=== PATIENT | female | born 1935 | race African-American/Black ===

== ENCOUNTER 2017-03-11 14:32 | Outpatient (CLI) | payer MEDICARE, OTHER | END 2017-03-11 14:33 | disposition home or self-care (01) | LOC: BICMAMMO 14:32 | PROVIDERS: ATTEND Internal Medicine Rheumatology | DX: Z13.820 Encounter for screening for osteoporosis (principal) | CPT/HCPCS: 77080 ==

== ENCOUNTER 2017-05-26 17:16 | Emergency (ER) | payer MEDICARE ==
[2017-05-26 17:54] LABS: #Basophils 0.1 thou/uL (0.0-0.2); #Eosinphils 0.3 thou/uL (0.0-0.7); #Lymphocytes 2.4 thou/uL (1.20-3.40); #Monocytes 0.8 thou/uL (0.11-0.59); #Neutrophils 3.8 thou/uL (1.40-6.50); %Basophils 0.7 % (0.0-1.0); %Eosinophils 4.2 % (0.0-10.0); %Lymphocytes 33.1 % (21.0-51.0); %Monocytes 10.9 % (0.0-10.0); %Neutrophils 51.2 % (42.0-75.0); Hemoglobin 10.1 g/dL (12.0-16.0); Mean Corpuscular HGB CONC 32.8 g/dL (32.0-36.0); Mean Corpuscular Hemoglobin 28.4 pg (27.0-31.0); Mean Corpuscular Volume 86.7 fl (81.0-99.0); Mean Platelet Volume 6.7 fL (7.4-10.4); Platelet Count 355 thou/uL (130-400); RBC Distribution Width 15.8 % (11.5-14.5); Red Blood Cell (RBC) Count 3.55 mill/uL (4.20-5.40); White Blood Cell (WBC) Count 7.3 thou/uL (4.8-10.8)
--- NOTE | 2017-05-26 18:16 | RAD ---
CHEST ONE VIEW: History: Weakness. Comparison: 08-06-16 FINDINGS: Similar appearance of the right basilar interstitial markings. No overt consolidation. No pneumothora x or effusion. Cardiac silhouette and mediastinal contours are similar. No acute osseous abnormality. IMPRESSION: Similar appearance of the increased interstitial markings in lung bases, likely fibrosis. POS: [facility]
[2017-05-26 18:20] LABS: ALT (SGPT) 14 U/L (8-55); AST (SGOT) 24 U/L (5-34); Albumin 3.3 g/dL (3.4-4.8); Alkaline Phosphatase 48 U/L (40-150); Anion Gap 15 mmol/L (10-20); BUN (Urea Nitrogen) 17 mg/dL (9.8-20.1); Bilirubin, Total 0.4 mg/dL (0.2-1.2); CK (CPK) 66 U/L (29-168); Calc. Creatinine Clearance 0 mL/min (70-130); Calcium 9.4 mg/dL (7.8-10.44); Carbon Dioxide 26 mmol/L (23-31); Chloride 93 mmol/L (98-107); Estimated GFR-MDRD 81; Globulin 4.5 g/dL (2.4-3.5); Glucose 95 mg/dL (83-110); Potassium 3.4 mmol/L (3.5-5.1); Protein, Total 7.8 g/dL (6.0-8.3); Sodium 131 mmol/L (136-145)
[2017-05-26 18:21] LABS: CKMB 1.1 ng/mL (0-6.6); Troponin I 0.014 ng/mL (< 0.028)
[2017-05-26] MEDS ORDERED: Ketorolac Tromethamine 30 MG/ML VIAL ONE (19:27)
[2017-05-26] MEDS ORDERED: Dexamethasone 4 mg/ml Vial ONE (19:27)
== END 2017-05-26 22:10 | disposition home or self-care (01) ==
LOC: ERS 17:16
DX: M19.90 Unspecified osteoarthritis, unspecified site (principal); I10 Essential (primary) hypertension; K21.9 Gastro-esophageal reflux disease without esophagitis; F32.9 Major depressive disorder, single episode, unspecified
CPT/HCPCS: 71045; 80053; 82553; 84484; 85025; 93005; 94760; 96361; 96374; 96375; J1100; J1885

== ENCOUNTER 2017-06-10 17:13 | Emergency (ER) | payer MEDICARE ==
[2017-06-10 18:09] LABS: #Eosinphils 0.3 thou/uL (0.0-0.7); #Lymphocytes 2.6 thou/uL (1.20-3.40); #Monocytes 0.7 thou/uL (0.11-0.59); #Neutrophils 4.1 thou/uL (1.40-6.50); %Basophils 0.4 % (0.0-1.0); %Eosinophils 4.1 % (0.0-10.0); %Lymphocytes 33.8 % (21.0-51.0); %Monocytes 8.9 % (0.0-10.0); %Neutrophils 52.9 % (42.0-75.0); Mean Corpuscular HGB CONC 32.1 g/dL (32.0-36.0); Mean Corpuscular Hemoglobin 27.5 pg (27.0-31.0); Mean Corpuscular Volume 85.6 fl (81.0-99.0); Mean Platelet Volume 6.6 fL (7.4-10.4); Platelet Count 402 thou/uL (130-400); RBC Distribution Width 15.3 % (11.5-14.5); Red Blood Cell (RBC) Count 3.62 mill/uL (4.20-5.40); White Blood Cell (WBC) Count 7.7 thou/uL (4.8-10.8)
[2017-06-10 18:12] LABS: INR-International Normal Ratio 1.1; Prothrombin Time 13.9 SEC (12.0-14.7)
[2017-06-10] MEDS ORDERED: Ondansetron HCl/PF 4 MG/2 ML Vial ONE (18:24)
[2017-06-10 18:29] LABS: ALT (SGPT) 9 U/L (8-55); AST (SGOT) 18 U/L (5-34); Albumin 3.5 g/dL (3.4-4.8); Alkaline Phosphatase 49 U/L (40-150); Anion Gap 14 mmol/L (10-20); BUN (Urea Nitrogen) 18 mg/dL (9.8-20.1); Bilirubin, Total 0.6 mg/dL (0.2-1.2); Calc. Creatinine Clearance 0 mL/min (70-130); Calcium 9.7 mg/dL (7.8-10.44); Carbon Dioxide 27 mmol/L (23-31); Chloride 92 mmol/L (98-107); Estimated GFR-MDRD 81; Glucose 96 mg/dL (83-110); Lipase 7 U/L (8-78); Magnesium 1.8 mg/dL (1.6-2.6); Potassium 3.5 mmol/L (3.5-5.1); Protein, Total 8.5 g/dL (6.0-8.3); Sodium 129 mmol/L (136-145)
[2017-06-10 18:34] LABS: CKMB 1.2 ng/mL (0-6.6); Troponin I Less than 0.010 ng/mL (< 0.028)
[2017-06-10] MEDS ORDERED: Acetaminophen 500 MG TAB ONE (18:56)
[2017-06-10 19:25] LABS: Bilirubin Negative (Negative); Blood, Urine Negative (Negative); Clarity CLEAR (Clear); Glucose, Urine (Dipstick) Negative (Negative); Leukocyte Moderate (Negative); Nitrite Negative (Negative); Protein, Urine (Dipstick) Negative (Neg-Trace); Specific Gravity, Urine 1.009 (1.002-1.036)
--- NOTE | 2017-06-10 19:26 | RAD ---
RADIOGRAPH CHEST 1 VIEW RADIOGRAPH ABDOMEN 2 VIEWS: Date: 06/10/17 Time: 6:06 p.m. HISTORY: 81-year-old female with nausea, productive cough, vomiting, generalized weakness. COMPARISON: 11/12/14 FINDINGS: There are fibrotic changes, consisting of honeycombing, at the basilar segments of the bilateral lowe r lobes, left greater than right. There is a small, flame shaped focal faint nodular density projecti ng over the left upper lobe. This was not present on a previous radiograph of 11/12/14. Cardiomediasti nal silhouette is normal. No pulmonary edema or pneumothorax. No pneumoperitoneum. Levoscoliosis with apex of curvature at thoracolumbar junction. Multilevel vacuum disc phenomenon, high grade disc spac e narrowing, and osteophytosis, of the lumbar spine. Nonobstructive bowel gas pattern. No evidence of pneumoperitoneum. IMPRESSION: 1. Left upper lobe pulmonary nodule. Recommend CT for further evaluation. 2. Pulmonary fibrosis at the bilateral lung bases: honeycombing. 3. No acute pulmonary findings. 4. No evidence of bowel obstruction. 5. High grade lumbar spondylosis and lumbar levoscoliosis. Code LN JN [] POS: [facility]
[2017-06-10 19:28] LABS: Bacteria/HPF None Seen HPF (None Seen); Hyaline Casts/LPF 0-3 HYALINE CAST LPF (0-3 Hyaline); Pathc Cast-AUWi Flag 0.13 (0-2.49); RBC/HPF 0-3 HPF (0-3); Squamous Epithelial 0-3 HPF (0-3)
--- NOTE | 2017-06-13 11:57 | EKG ---
Test Reason : NAUSEA VOMITING Blood Pressure : / mmHG Vent. Rate : 075 BPM Atrial Rate : 075 BPM P-R Int : 154 ms QRS Dur : 080 ms QT Int : 412 ms P-R-T Axes : 040 031 038 degrees QTc Int : 460 ms Normal sinus rhythm Possible Left atrial enlargement ST abnormality, possible digitalis effect Abnormal ECG Confirmed by MATA Corbett, TAMIKA ([id number]), scientific publications editor VIKRAM DOUGLAS ([id number]) on 06/13/2017 11:56:15 AM Referred By: MATA Confirmed By:TAMIKA AUGUST M.D.
== END 2017-06-10 20:13 | disposition home or self-care (01) ==
LOC: ERS 17:13
DX: E87.1 Hypo-osmolality and hyponatremia (principal); N39.0 Urinary tract infection, site not specified; I10 Essential (primary) hypertension; M06.9 Rheumatoid arthritis, unspecified; F32.9 Major depressive disorder, single episode, unspecified; K21.9 Gastro-esophageal reflux disease without esophagitis
CPT/HCPCS: 74022; 80053; 81003; 81015; 82553; 83605; 83690; 83735; 84484; 85025; 85610; 87804; 93005; 96361; 96374; J2405

== ENCOUNTER 2017-09-11 03:52 | Inpatient (IN) | payer MEDICARE ==
[2017-09-11] MEDS ORDERED: Ondansetron ODT 4 MG TAB ONE (04:20)
[2017-09-11 04:31] LABS: #Basophils 0.1 thou/uL (0.0-0.2); #Eosinphils 0.1 thou/uL (0.0-0.7); #Lymphocytes 3.5 thou/uL (1.20-3.40); #Monocytes 0.5 thou/uL (0.11-0.59); %Basophils 0.8 % (0.0-1.0); %Eosinophils 1.1 % (0.0-10.0); %Monocytes 5.3 % (0.0-10.0); %Neutrophils 58.8 % (42.0-75.0); Mean Corpuscular HGB CONC 32.8 g/dL (32.0-36.0); Mean Corpuscular Volume 79.3 fL (78.0-98.0); Mean Platelet Volume 6.1 fL (7.4-10.4); Platelet Count 567 thou/uL (130-400); RBC Distribution Width 16.2 % (11.5-14.5); Red Blood Cell (RBC) Count 3.46 mill/uL (4.20-5.40); White Blood Cell (WBC) Count 10.2 thou/uL (4.8-10.8)
[2017-09-11 04:52] LABS: ALT (SGPT) Less than 7 U/L (8-55); AST (SGOT) 17 U/L (5-34); Albumin 3.1 g/dL (3.4-4.8); Alkaline Phosphatase 49 U/L (40-150); Anion Gap 14 mmol/L (10-20); BUN (Urea Nitrogen) 11 mg/dL (9.8-20.1); Bilirubin, Total 0.4 mg/dL (0.2-1.2); CK (CPK) 20 U/L (29-168); Calc. Creatinine Clearance 0 mL/min (70-130); Calcium 9.4 mg/dL (7.8-10.44); Carbon Dioxide 27 mmol/L (23-31); Chloride 90 mmol/L (98-107); Estimated GFR-MDRD Greater than 90; Globulin 5.6 g/dL (2.4-3.5); Glucose 115 mg/dL (83-110); Lipase 6 U/L (8-78); Potassium 3.1 mmol/L (3.5-5.1); Protein, Total 8.7 g/dL (6.0-8.3); Sodium 128 mmol/L (136-145)
[2017-09-11 04:56] LABS: CKMB 0.6 ng/mL (0-6.6); Troponin I Less than 0.010 ng/mL (< 0.028)
[2017-09-11 05:02] LABS: Bilirubin Negative (Negative); Blood, Urine Moderate (Negative); Clarity CLEAR (Clear); Glucose, Urine (Dipstick) Negative (Negative); Leukocyte Trace (Negative); Nitrite Negative (Negative); Protein, Urine (Dipstick) Negative (Neg-Trace); Specific Gravity, Urine 1.008 (1.002-1.036); Urobilinogen 0.2 mg/dL (0.2-1.0)
[2017-09-11 05:05] LABS: Bacteria/HPF 1+ HPF (None Seen); Pathc Cast-AUWi Flag 1.01 (0-2.49); Squamous Epithelial 0-3 HPF (0-3); WBC/HPF 0-3 HPF (0-3)
[2017-09-11 05:25] LABS: Hyaline Casts/LPF 0-3 HYALINE CAST LPF (0-3 Hyaline)
[2017-09-11] MEDS ORDERED: metroNIDAZOLE 500 MG/100 ML BAG ONE (06:17)
[2017-09-11] MEDS ORDERED: Promethazine HCl 25 MG/ML VIAL ONE (06:43)
[2017-09-11] MEDS ORDERED: Potassium Chloride 20 MEQ TAB PO SCH (08:00)
[2017-09-11] MEDS ORDERED: Sodium Chloride 0.9% 1,000 ML IV SCH (08:00)
[2017-09-11] MEDS ORDERED: Ondansetron ODT 4 MG TAB PO PRN ×2 (08:02→11:05)
[2017-09-11] MEDS ORDERED: Ondansetron HCl/PF 4 MG/2 ML Vial IVP PRN ×2 (08:02→11:05)
--- NOTE | 2017-09-11 09:07 | CT ---
FINAL REPORT CT ABDOMEN AND PELVIS WITH IV CONTRAST: DATE: 08/22/17. TIME: Performed on an emergency basis at 0502 hours. HISTORY: Abdominal pain. Nausea and vomiting. COMPARISON: 04/04/14. FINDINGS: Findings agree with the preliminary report by Dr. Villalta from [facility]. Bibasilar lung pare nchymal scarring and fibrotic changes are again demonstrated. Circumferential wall thickening is sub tle and could be related to long-segment colitis. Cause is not evident. POS: [facility]
[2017-09-11] MEDS ORDERED: ISOVUE-370 76%-LOCM 1 ML ONE (10:59)
[2017-09-11] MEDS ORDERED: hydrALAZINE 20 MG/ML VIAL SLOW IVP PRN (11:05)
[2017-09-11] MEDS ORDERED: Famotidine/PF 20 mg/2ml Vial SLOW IVP SCH ×2 (11:05→11:15)
[2017-09-11] MEDS ORDERED: cloNIDine 0.1 MG TAB PO PRN (11:05)
[2017-09-11] MEDS ORDERED: Morphine 4 MG/ML Carpuject SLOW IVP PRN (11:08)
[2017-09-11] MEDS ORDERED: Non-Formulary Item 1 EACH (Cyclobenzaprine Hcl [Cyclobenzaprine Hcl] 5 MG) PO PRN (11:11)
[2017-09-11] MEDS: Sodium Chloride 0.9% 1,000 ML IV SCH ×3 (11:36→20:47)
[2017-09-11] MEDS: Famotidine/PF 20 mg/2ml Vial SLOW IVP SCH (12:03)
--- NOTE | 2017-09-11 12:05 | HP ---
DATE OF ADMISSION: 09/11/2017 PRIMARY CARE PHYSICIAN: Dr. Jude Rincon. CHIEF COMPLAINT: Abdominal pain, nausea, and vomiting. HISTORY OF PRESENT ILLNESS: This is an 82-year-old -Gabonese female who complains of increasi ng abdominal pain, nausea, and vomiting which began in the last 24 hours. The patient had multiple e pisodes of emesis which began approximately 2100 on 09/10/2017. The patient does report a history of constipation and recently placed on iron supplements approximately 2 months prior to this evaluation . The patient denies any travel history. Family members with similar symptoms, recent trauma, injur y or documented fever. The patient does admit to body aches, joint pains and back pain. The patient denied any blood in her emesis or blood in the stool. The patient denies any recent change to her c hronic medication regimen other than the iron therapy. The family reports patient has had overall de creased appetite over the last several weeks; however, the patient reports her last regular meal inta ke was within the last 24 hours. The patient denies any dysuria, flank pain, shortness of breath or cough. The patient denies any recent exposure to antibiotic therapy. The patient admits to ban ding back pain as well as degenerative changes. In the emergency room, the patient underwent general evaluation including CT of the abdomen and pelvis. Findings included circumferential bowel wall thi ckening in the colon concerning for acute colitis. The patient received multiple medications in the emergency room including Flagyl and Levaquin. The patient also received antiemetics with Zofran and Phenergan as well as intravenous normal saline. The patient continues to complain of abdominal disco mfort and persistent nausea. PAST MEDICAL HISTORY: 1. Rheumatoid arthritis. 2. Hypertension. 3. Gastroesophageal reflux disease. 4. History of remote bowel obstruction, status post bowel resection. 5. Chronic normocytic anemia with iron supplementation. PAST SURGICAL HISTORY: 1. Status post bowel resection. 2. Status post lumbar laminectomy with facetectomy and foraminotomies in 2016. 3. Status post bilateral total knee arthroplasty. 4. Status post bilateral cataract removal. CURRENT MEDICATIONS: List will need to be confirmed with family members. 1. Lexapro 20 mg one tab p.o. at bedtime. 2. Carvedilol 6.25 mg p.o. b.i.d. 3. Breo Ellipta 1 inhalation b.i.d. 4. Nifedipine 30 mg p.o. daily. 5. Aspirin 81 mg 1 tab p.o. daily. 6. Folic acid 1000 mcg p.o. daily. 7. Hydrochlorothiazide 25 mg p.o. daily. 8. Alprazolam 0.25 mg p.o. p.r.n. 9. Iron 325 mg p.o. daily. ALLERGIES: PENICILLIN, TALWIN, and PENTAZOCINE. FAMILY HISTORY: Positive for lung cancer. SOCIAL HISTORY: , accompanied by multiple family members in the hospital. Resides in [place], [place]. Retired. No current alcohol, tobacco or illicit drug use. REVIEW OF SYSTEMS: The following complete review of systems was negative, unless otherwise mentioned in the HPI or below: Constitutional: Weight loss or gain, ability to conduct usual activities. Skin: Rash, itching. Eyes: Double vision, pain. ENT/Mouth: Nose bleeding, neck stiffness, pain, tenderness. Cardiovascular: Palpitations, dyspnea on exertion, orthopnea. Respiratory: Shortness of breath, wheezing, cough, hemoptysis, fever or night sweats. Gastrointestinal: Poor appetite, abdominal pain, heartburn, nausea, vomiting, constipation, or diarr hea. Genitourinary: Urgency, frequency, dysuria, nocturia. Musculoskeletal: Pain, swelling. Neurologic/Psychiatric: Anxiety, depression. Allergy/Immunologic: Skin rash, bleeding tendency. Otherwise negative except as stated per HPI. PHYSICAL EXAMINATION: VITAL SIGNS: On admission, blood pressure 141/80, pulse 96, respiratory rate 22, temperature 98.3 de grees Fahrenheit, O2 saturation 95% on room air. GENERAL APPEARANCE: This is an 82-year-old -Gabonese female, alert and oriented x3 in mild to moderate distress. HEENT: Pupils are equal, round, and reactive to light and accommodation. Extraocular muscles are in tact. No scleral icterus, no conjunctival injection. Nares patent. OP is clear. Oral mucosa dry a ppearing. NECK: Supple, no cervical adenopathy, no thyromegaly, no carotid bruits, no JVD appreciated. Cervic al spine with full active and passive range of motion. No meningeal signs appreciated. CHEST: Lungs are clear to auscultation bilaterally. CARDIOVASCULAR: S1 and S2 without noted murmur, rub or gallop. ABDOMEN: Rounded with tenderness to palpation diffusely. No rebound or guarding noted. Bowel sound s are positive in all 4 quadrants. No CVA tenderness appreciated. EXTREMITIES: Warm and dry with fair turgor. No clubbing, cyanosis or asymmetric edema appreciated. Pulses palpable distally at the dorsalis pedis, posterior tibial, and popliteal arteries bilaterally . Capillary refill less than 2 seconds. NEUROLOGIC: Cranial nerves II-XII are grossly intact. No focal or lateralizing signs appreciated. PERTINENT LABORATORY DATA AND X-RAY FINDINGS: Sodium 128, potassium 3.1, chloride 90, CO2 of 27, BUN 11, creatinine 0.66, glucose 115, calcium 9.4, AST 17, ALT less than 7, alkaline phosphatase 49, tot al CK of 20, BNP 78, albumin 3.1, lipase 6. CBC showed a white blood cell count of 10.2, hemoglobin 9, hematocrit 27, platelet count 567 with 59% neutrophils. Urinalysis positive for trace leukocyte e sterase and moderate blood with urine microscopy showing 11-20 rbc's per high powered field. Stool H emoccult negative x1 on 09/11/2017. CT of the abdomen and pelvis dated 09/11/2017 showed bibasilar l amaris parenchymal scarring and fibrotic changes. Circumferential wall thickening suggestive of colitis . EKG dated 09/11/2017 by my interpretation shows sinus mechanism with heart rates in the 80s. Atte nuated R waves in the precordial leads. Normal axis. No acute ST-T wave changes appreciated. ASSESSMENT AND PLAN: 1. Acute colitis/gastroenteritis. The patient will be admitted to the medical floor. We will brain nue ciprofloxacin 400 mg IV q.12 hours with additional Flagyl 500 mg IV q.8 hours. Continue intraven ous normal saline at 125 mL per hour. Check stool studies to rule out Campylobacter and Clostridium difficile. No current evidence to suggest acute gastrointestinal bleed. Consider GI consultation if patient does not clinically improve in the next 24 hours. 2. Nausea and vomiting. We will continue intravenous fluids as outlined in #1. Phenergan 25 mg IV q.6 hours p.r.n., Zofran 8 mg IV q.6 hours p.r.n. Clear liquids as tolerated. 3. Hyponatremia. Appears chronic when comparing previous sodium values dating back to 2016. We joseph l continue intravenous normal saline and repeat sodium level in the a.m. 4. Hypokalemia. Continue potassium supplementation and repeat potassium level in the a.m. 5. Chronic normocytic anemia. We will continue to monitor serial hemoglobin trend. No current evid ence to suggest acute blood loss. Repeat CBC in the a.m. 6. Hypertension. We will confirm home antihypertensive regimen. Clonidine and hydralazine p.r.n. 7. Prophylaxis. Sequential compression devices while in bed. Pepcid 20 mg IV q.12 hours. 8. Code status is FULL. Surrogate medical decision maker is patient's spouse.
[2017-09-11] MEDS ORDERED: metroNIDAZOLE 500 MG in Premix Bag 1 BAG IVPB SCH (14:00)
[2017-09-11] MEDS: Dicyclomine 10 MG/5 ML UDCUP PO SCH ×3 (14:13→20:45)
[2017-09-11] MEDS: metroNIDAZOLE 500 MG in Premix Bag 1 BAG IVPB SCH ×2 (14:39→20:45)
[2017-09-11] MEDS: Promethazine HCl 25 MG in Sodium Chloride 0.9% 50 ML IVPB PRN (21:28)
[2017-09-12] MEDS: Promethazine HCl 25 MG in Sodium Chloride 0.9% 50 ML IVPB PRN (03:13)
[2017-09-12 05:07] LABS: ALT (SGPT) Less than 7 U/L (8-55); AST (SGOT) 13 U/L (5-34); Albumin 2.9 g/dL (3.4-4.8); Alkaline Phosphatase 40 U/L (40-150); Anion Gap 12 mmol/L (10-20); BUN (Urea Nitrogen) 5 mg/dL (9.8-20.1); Bilirubin, Total 0.3 mg/dL (0.2-1.2); Calc. Creatinine Clearance 66 mL/min (70-130); Calcium 8.6 mg/dL (7.8-10.44); Carbon Dioxide 25 mmol/L (23-31); Chloride 97 mmol/L (98-107); Estimated GFR-MDRD Greater than 90; Globulin 5.1 g/dL (2.4-3.5); Glucose 92 mg/dL (83-110); Potassium 3.1 mmol/L (3.5-5.1); Sodium 131 mmol/L (136-145)
[2017-09-12] MEDS: Sodium Chloride 0.9% 1,000 ML IV SCH ×2 (06:16→18:13)
[2017-09-12] MEDS: metroNIDAZOLE 500 MG in Premix Bag 1 BAG IVPB SCH ×3 (06:16→22:05)
[2017-09-12 06:29] LABS: Band 1 % (5-11); Hemoglobin 8.7 g/dL (12.0-16.0); Lymphocytes 20 % (21-51); MDiff Complete? YES; Mean Corpuscular HGB CONC 32.3 g/dL (32.0-36.0); Mean Corpuscular Hemoglobin 26.2 pg (27.0-31.0); Mean Corpuscular Volume 81.1 fL (78.0-98.0); Mean Platelet Volume 6.2 fL (7.4-10.4); Monocytes 6 % (0-10); Neutrophil 72 % (42-75); Platelet Count 534 thou/uL (130-400); RBC Distribution Width 16.3 % (11.5-14.5); Red Blood Cell (RBC) Count 3.32 mill/uL (4.20-5.40); White Blood Cell (WBC) Count 9.7 thou/uL (4.8-10.8)
[2017-09-12] MEDS: Dicyclomine 10 MG/5 ML UDCUP PO SCH ×4 (08:12→22:06)
[2017-09-12] MEDS: Famotidine/PF 20 mg/2ml Vial SLOW IVP SCH ×2 (09:40→22:06)
[2017-09-12] MEDS: Promethazine HCl 25 MG/ML VIAL IM/IV PRN (09:40)
[2017-09-12 12:25] VITALS: BMI 22.1
--- NOTE | 2017-09-12 17:42 | PDOC.PN ---
- Subjective Encounter Start Date: 09/12/17 Encounter Start Time: 11:00 Subjective: f/u for acute colitis on current Cipro/Flagyl. N/V resolving and less -: abd pain today. - Objective Resuscitation Status: Resuscitation Status FULL:Full Resuscitation MAR Reviewed: Yes Vital Signs & Weight: Vital Signs (12 hours) Temp Pulse Resp BP Pulse Ox 09/12/17 14:13 98.1 F 93 16 153/75 H 96 09/12/17 11:00 98.8 F 98 22 H 160/79 H 98 09/12/17 08:00 98.3 F 90 20 98 09/12/17 07:52 98.3 F 90 20 163/80 H Weight Admit Weight 130 lb 1.164 oz Weight 133 lb I&O: 09/11/17 09/12/17 09/13/17 06:59 06:59 06:59 Intake Total 2635 1583 Output Total 200 Balance 2435 1583 Result Diagrams: 09/12/17 04:15 09/12/17 04:15 Additional Labs: Microbiology 09/11/17 04:30 Stool - Pending Stool Occult Blood (SUBHASH) - Final 09/11/17 04:40 Urine clean catch Urine Culture - Preliminary Laboratory Tests 09/11/17 09/11/17 04:20 04:20 Hgb 9.0 L Plt Count 567 H Sodium 128 L Potassium 3.1 L Phys Exam - Physical Examination Constitutional: NAD HEENT: PERRLA, sclera anicteric, oral pharynx no lesions Neck: no nodes, no JVD, supple, full ROM Respiratory: no wheezing, no rales, no rhonchi, clear to auscultation bilateral S1, S2 Cardiovascular: RRR, no significant murmur, no rub, gallop mild TTP in LLQ Gastrointestinal: soft, no distention, positive bowel sounds Musculoskeletal: no edema, pulses present Neurological: non-focal, normal sensation, moves all 4 limbs Psychiatric: normal affect, A&O x 3 Skin: no rash, normal turgor, cap refill <2 seconds Dx/Plan (1) Acute colitis Code(s): K52.9 - NONINFECTIVE GASTROENTERITIS AND COLITIS, UNSPECIFIED Status : Acute Comment: Continue Cipro/Flagyl IV, supportive mgmt, IVF, Pain control Morphine Sulfate 4mg IV q4h prn (2) Gastroenteritis Code(s): K52.9 - NONINFECTIVE GASTROENTERITIS AND COLITIS, UNSPECIFIED Status : Acute Comment: Suspected given #1, see above (3) Nausea and vomiting Code(s): R11.2 - NAUSEA WITH VOMITING, UNSPECIFIED Status: Acute Comment: Continue Phenergan and Zofran, IVF's, clear liquids, resolving (4) Hyponatremia Code(s): E87.1 - HYPO-OSMOLALITY AND HYPONATREMIA Status: Acute Comment: Improved, likely multifactorial including poor po intake, continue IVF NS (5) Hypokalemia Code(s): E87.6 - HYPOKALEMIA Status: Acute Comment: KCL supplementation, serial K+ (6) Normocytic anemia Code(s): D64.9 - ANEMIA, UNSPECIFIED Status: Chronic Comment: Chronic, no active blood loss noted, serial CBC - Plan plan discussed w/ family, continue antibiotics, PT/OT, social insurance specialist, out of bed/ambulate, DVT proph w/SCDs Stable overall -: Continue IVF NS 100ml/h -: KCL supplementation and monitor serially -: Continue Phenergan and Zofran IV -: Continue Cipro and Flagyl * AM lab: BMP, CBC
[2017-09-13] MEDS: Promethazine HCl 25 MG in Sodium Chloride 0.9% 100 ML IVPB PRN ×2 (04:15→20:59)
[2017-09-13] MEDS: Acetaminophen 500 MG TAB PO PRN ×2 (04:40→21:04)
[2017-09-13 05:05] LABS: Anion Gap 12 mmol/L (10-20); BUN (Urea Nitrogen) 5 mg/dL (9.8-20.1); Calc. Creatinine Clearance 70 mL/min (70-130); Calcium 8.3 mg/dL (7.8-10.44); Carbon Dioxide 24 mmol/L (23-31); Chloride 97 mmol/L (98-107); Estimated GFR-MDRD Greater than 90; Glucose 98 mg/dL (83-110); Sodium 130 mmol/L (136-145)
[2017-09-13 05:09] LABS: Potassium 2.9 mmol/L (3.5-5.1)
[2017-09-13] MEDS: metroNIDAZOLE 500 MG in Premix Bag 1 BAG IVPB SCH ×3 (05:53→21:09)
[2017-09-13] MEDS: Sodium Chloride 0.9% 1,000 ML IV SCH ×4 (05:54→21:02)
[2017-09-13 06:20] LABS: Band 2 % (5-11); Eosinophils 1 % (0-10); Hemoglobin 8.8 g/dL (12.0-16.0); Lymphocytes 21 % (21-51); MDiff Complete? YES; Mean Corpuscular Hemoglobin 25.5 pg (27.0-31.0); Mean Corpuscular Volume 79.8 fL (78.0-98.0); Monocytes 7 % (0-10); Neutrophil 69 % (42-75); PLT Morphology Comment Appears Increased; Platelet Count 563 thou/uL (130-400); RBC Distribution Width 16.3 % (11.5-14.5); Red Blood Cell (RBC) Count 3.46 mill/uL (4.20-5.40); White Blood Cell (WBC) Count 10.6 thou/uL (4.8-10.8)
[2017-09-13] MEDS ORDERED: Potassium Chloride 20 MEQ TAB PO SCH (06:30)
[2017-09-13] MEDS: Dicyclomine 10 MG/5 ML UDCUP PO SCH ×4 (09:45→21:02)
[2017-09-13] MEDS: Famotidine/PF 20 mg/2ml Vial SLOW IVP SCH ×2 (09:45→21:03)
--- NOTE | 2017-09-13 14:56 | PDOC.PN ---
- Subjective Encounter Start Date: 09/13/17 Encounter Start Time: 14:40 Subjective: f/u for acute colitis tx with Cipro/Flagyl and feeling better. Tolerating -: liquids but coffee upset stomach. No N/V. No diarrhea. - Objective Resuscitation Status: Resuscitation Status FULL:Full Resuscitation MAR Reviewed: Yes Vital Signs & Weight: Vital Signs (12 hours) Temp Pulse Resp BP Pulse Ox 09/13/17 07:46 98.1 F 94 14 160/73 H 100 09/13/17 04:22 97.9 F 97 18 165/79 H 99 Weight Admit Weight 130 lb 1.164 oz Weight 133 lb I&O: 09/12/17 09/13/17 09/14/17 06:59 06:59 06:59 Intake Total 2635 1583 120 Output Total 200 Balance 2435 1583 120 Result Diagrams: 09/13/17 04:25 09/13/17 04:25 Additional Labs: Microbiology 09/11/17 04:40 Urine clean catch Urine Culture - Final 09/11/17 04:30 Stool - Pending Stool Occult Blood (SUBHASH) - Final 09/11/17 04:40 Urine clean catch Urine Culture - Preliminary Laboratory Tests 09/11/17 09/11/17 09/12/17 04:20 04:20 04:15 Hgb 9.0 L Plt Count 567 H Sodium 128 L 131 L Potassium 3.1 L 3.1 L Phys Exam - Physical Examination Constitutional: NAD HEENT: PERRLA, sclera anicteric, oral pharynx no lesions Neck: no nodes, no JVD, supple, full ROM Respiratory: no wheezing, no rales, no rhonchi, clear to auscultation bilateral S1, S2 Cardiovascular: RRR, no significant murmur, no rub, gallop Gastrointestinal: soft, non-tender, no distention, positive bowel sounds Musculoskeletal: no edema, pulses present Neurological: non-focal, normal sensation, moves all 4 limbs Psychiatric: normal affect, A&O x 3 Skin: no rash, normal turgor, cap refill <2 seconds Dx/Plan (1) Acute colitis Code(s): K52.9 - NONINFECTIVE GASTROENTERITIS AND COLITIS, UNSPECIFIED Status : Acute Comment: Continue Cipro/Flagyl IV, supportive mgmt, IVF, Pain control Morphine Sulfate 4mg IV q4h prn, continue IV abx another 24h then convert to po (2) Gastroenteritis Code(s): K52.9 - NONINFECTIVE GASTROENTERITIS AND COLITIS, UNSPECIFIED Status : Acute Comment: Suspected given #1, see above (3) Nausea and vomiting Code(s): R11.2 - NAUSEA WITH VOMITING, UNSPECIFIED Status: Acute Comment: Resolving, advance to [facility] soft diet (4) Hyponatremia Code(s): E87.1 - HYPO-OSMOLALITY AND HYPONATREMIA Status: Acute Comment: Improved, likely multifactorial including poor po intake, continue IVF NS decrease 75ml/h (5) Hypokalemia Code(s): E87.6 - HYPOKALEMIA Status: Acute Comment: KCL supplementation, serial K+ (6) Normocytic anemia Code(s): D64.9 - ANEMIA, UNSPECIFIED Status: Chronic Comment: Chronic, no active blood loss noted, serial CBC - Plan plan discussed w/ family, continue antibiotics, PT/OT, social service technician, out of bed/ambulate, DVT proph w/SCDs Stable overall -: Continue Cipro/Flagyl IV another 24h -: Advance to [facility] soft diet -: OOB/ambulate -: Decrease IVF 75ml/h * AM lab: BMP * Likely home in 24-48h
[2017-09-13] MEDS: Potassium Chloride 20 MEQ TAB PO SCH ×2 (16:38→21:03)
[2017-09-14] MEDS: metroNIDAZOLE 500 MG in Premix Bag 1 BAG IVPB SCH ×2 (05:21→13:05)
[2017-09-14 05:47] LABS: Anion Gap 10 mmol/L (10-20); BUN (Urea Nitrogen) 4 mg/dL (9.8-20.1); Calc. Creatinine Clearance 68 mL/min (70-130); Calcium 8.1 mg/dL (7.8-10.44); Carbon Dioxide 22 mmol/L (23-31); Chloride 103 mmol/L (98-107); Estimated GFR-MDRD Greater than 90; Glucose 80 mg/dL (83-110); Potassium 4.1 mmol/L (3.5-5.1); Sodium 131 mmol/L (136-145)
[2017-09-14] MEDS: Potassium Chloride 20 MEQ TAB PO SCH ×2 (09:32→14:16)
[2017-09-14] MEDS: Dicyclomine 10 MG/5 ML UDCUP PO SCH ×4 (09:33→20:09)
[2017-09-14] MEDS: Famotidine/PF 20 mg/2ml Vial SLOW IVP SCH ×2 (10:11→20:09)
[2017-09-14] MEDS: Promethazine HCl 25 MG/ML VIAL IM/IV PRN (10:56)
[2017-09-14] MEDS: Sodium Chloride 0.9% 1,000 ML IV SCH (16:37)
[2017-09-14] MEDS: Acetaminophen 500 MG TAB PO PRN (16:38)
--- NOTE | 2017-09-14 17:22 | PDOC.PN ---
- Subjective Encounter Start Date: 09/14/17 Encounter Start Time: 17:00 Subjective: f/u for acute colitis improved with supportive care. No diarrhea. -: Tolerating soft diet. - Objective Resuscitation Status: Resuscitation Status FULL:Full Resuscitation MAR Reviewed: Yes Vital Signs & Weight: Vital Signs (12 hours) Temp Pulse Resp BP Pulse Ox 09/14/17 10:16 165/75 H 09/14/17 08:00 98.4 F 101 H 18 98 09/14/17 07:52 98.4 F 101 H 18 181/69 H 98 Weight Admit Weight 130 lb 1.164 oz Weight 133 lb I&O: 09/13/17 09/14/17 09/15/17 06:59 06:59 06:59 Intake Total 1583 1060 Output Total 790 Balance 1583 270 Result Diagrams: 09/13/17 04:25 09/14/17 04:43 Phys Exam - Physical Examination Constitutional: NAD HEENT: PERRLA, sclera anicteric, oral pharynx no lesions Neck: no nodes, no JVD, supple, full ROM Respiratory: no wheezing, no rales, no rhonchi, clear to auscultation bilateral S1, S2 Cardiovascular: RRR, no significant murmur, no rub, gallop Gastrointestinal: soft, non-tender, no distention, positive bowel sounds Musculoskeletal: no edema, pulses present Neurological: non-focal, normal sensation, moves all 4 limbs Psychiatric: normal affect, A&O x 3 Skin: no rash, normal turgor, cap refill <2 seconds Dx/Plan (1) Acute colitis Code(s): K52.9 - NONINFECTIVE GASTROENTERITIS AND COLITIS, UNSPECIFIED Status : Acute Comment: Continue Cipro/Flagyl po, supportive mgmt (2) Gastroenteritis Code(s): K52.9 - NONINFECTIVE GASTROENTERITIS AND COLITIS, UNSPECIFIED Status : Acute Comment: Suspected given #1, see above (3) Nausea and vomiting Code(s): R11.2 - NAUSEA WITH VOMITING, UNSPECIFIED Status: Acute Comment: Resolving, advance to [facility] soft diet (4) Hyponatremia Code(s): E87.1 - HYPO-OSMOLALITY AND HYPONATREMIA Status: Acute Comment: Saline lock IVF (5) Hypokalemia Code(s): E87.6 - HYPOKALEMIA Status: Acute Comment: KCL supplementation, serial K+, resolving (6) Normocytic anemia Code(s): D64.9 - ANEMIA, UNSPECIFIED Status: Chronic Comment: Chronic, no active blood loss noted, serial CBC - Plan plan discussed w/ family, continue antibiotics, PT/OT, social economist, out of bed/ambulate, DVT proph w/SCDs Stable overall -: Convert Cipro and Flagyl to po -: Saline Lock IVF -: Miralax 17gm po daily -: Change KCL 40meq BID * Likely home in am
[2017-09-14] MEDS: metroNIDAZOLE 500 MG TAB PO SCH (20:08)
[2017-09-14] MEDS: Ciprofloxacin 500 MG TAB PO SCH (20:08)
[2017-09-14] MEDS ORDERED: Potassium Chloride 20 MEQ TAB PO SCH (21:00)
[2017-09-15] MEDS: Acetaminophen 500 MG TAB PO PRN ×2 (03:14→17:11)
[2017-09-15] MEDS: Cyclobenzaprine 10 MG TAB PO PRN ×2 (03:15→19:08)
[2017-09-15] MEDS: Ciprofloxacin 500 MG TAB PO SCH ×2 (05:49→20:37)
[2017-09-15] MEDS ORDERED: Potassium Chloride 20 MEQ TAB PO SCH (08:00)
[2017-09-15] MEDS ORDERED: ALPRAZolam 0.5 MG TAB PO PRN (09:47)
[2017-09-15] MEDS: metroNIDAZOLE 500 MG TAB PO SCH (09:48)
[2017-09-15] MEDS: Promethazine HCl 25 MG/ML VIAL IM/IV PRN (09:51)
[2017-09-15] MEDS: Famotidine/PF 20 mg/2ml Vial SLOW IVP SCH ×2 (09:52→20:43)
--- NOTE | 2017-09-15 09:52 | PDOC.PN ---
- Subjective Encounter Start Date: 09/15/17 Encounter Start Time: 09:30 Subjective: f/u for colitis of unclear etiology. States emesis this am after eating -: breakfast. Denied being nauseated prior. No abd pain or fever. - Objective Resuscitation Status: Resuscitation Status FULL:Full Resuscitation MAR Reviewed: Yes Vital Signs & Weight: Vital Signs (12 hours) Temp Pulse Resp BP Pulse Ox 09/15/17 07:25 98.2 F 89 18 174/81 H 99 Weight Admit Weight 130 lb 1.164 oz Weight 133 lb I&O: 09/14/17 09/15/17 09/16/17 06:59 06:59 06:59 Intake Total 1060 2637 Output Total 790 Balance 270 2637 Result Diagrams: 09/13/17 04:25 09/14/17 04:43 Phys Exam - Physical Examination Constitutional: NAD alert, responsive HEENT: PERRLA, sclera anicteric, oral pharynx no lesions Neck: no nodes, no JVD, supple, full ROM Respiratory: no wheezing, no rales, no rhonchi, clear to auscultation bilateral S1, S2 Cardiovascular: RRR, no significant murmur, no rub, gallop Gastrointestinal: soft, non-tender, no distention, positive bowel sounds Musculoskeletal: no edema, pulses present Neurological: non-focal, normal sensation, moves all 4 limbs Psychiatric: normal affect, A&O x 3 Skin: no rash, normal turgor, cap refill <2 seconds Dx/Plan (1) Acute colitis Code(s): K52.9 - NONINFECTIVE GASTROENTERITIS AND COLITIS, UNSPECIFIED Status : Acute Comment: D/C Flagyl due to GI intolerance, continue Cipro another 24h , supportive mgmt (2) Gastroenteritis Code(s): K52.9 - NONINFECTIVE GASTROENTERITIS AND COLITIS, UNSPECIFIED Status : Acute Comment: Suspected given #1, see above (3) Nausea and vomiting Code(s): R11.2 - NAUSEA WITH VOMITING, UNSPECIFIED Status: Acute Comment: Resolving, advance to [facility] soft diet, recurrent, antiemetics prn, likely due to Flagyl and KCL (4) Hyponatremia Code(s): E87.1 - HYPO-OSMOLALITY AND HYPONATREMIA Status: Acute Comment: Saline lock IVF (5) Hypokalemia Code(s): E87.6 - HYPOKALEMIA Status: Acute Comment: KCL supplementation, serial K+, resolving, D/C KCL (6) Normocytic anemia Code(s): D64.9 - ANEMIA, UNSPECIFIED Status: Chronic Comment: Chronic, no active blood loss noted, serial CBC - Plan plan discussed w/ family, continue antibiotics, PT/OT, social services technician, out of bed/ambulate, DVT proph w/SCDs Stable overall -: Antiemetics prn -: D/C Flagyl -: D/C KCL -: OOB/ambulate * Restart Nifedipine and Coreg today * Likely home in 24h if tolerating po intake
[2017-09-15] MEDS: Dicyclomine 10 MG/5 ML UDCUP PO SCH ×4 (09:53→20:40)
[2017-09-15] MEDS ORDERED: NIFEdipine XL 60 MG TAB PO SCH (10:00)
[2017-09-15] MEDS ORDERED: Non-Formulary Item 1 EACH (Carvedilol [Carvedilol] 12.5 MG) PO SCH (10:00)
[2017-09-15] MEDS ORDERED: Carvedilol 6.25 MG TAB PO SCH (10:00)
[2017-09-15] MEDS ORDERED: NIFEdipine XL 30 MG TAB PO SCH (10:00)
[2017-09-15] MEDS: Carvedilol 6.25 MG TAB PO SCH (20:37)
[2017-09-16] MEDS: Cyclobenzaprine 10 MG TAB PO PRN (04:11)
[2017-09-16] MEDS: Acetaminophen 500 MG TAB PO PRN ×2 (04:11→10:36)
[2017-09-16] MEDS: Ciprofloxacin 500 MG TAB PO SCH (05:55)
[2017-09-16] MEDS ORDERED: Folic Acid 1 MG TAB PO SCH (09:00)
[2017-09-16] MEDS ORDERED: NIFEdipine XL 60 MG TAB PO SCH (09:00)
[2017-09-16] MEDS ORDERED: Aspirin 81 mg Enteric Coated Tablet PO SCH (09:00)
[2017-09-16] MEDS: Carvedilol 6.25 MG TAB PO SCH (09:15)
[2017-09-16] MEDS: Dicyclomine 10 MG/5 ML UDCUP PO SCH ×2 (09:58→12:35)
[2017-09-16] MEDS: Famotidine/PF 20 mg/2ml Vial SLOW IVP SCH (09:58)
[2017-09-16 15:39] VITALS: BP 111/63; TEMP 97.8
--- NOTE | 2017-09-17 11:43 | PQF ---
[employer] Location Manager Crystal Reports [facility] ViewerGRREUNION REHABILIT[facility],SHARMILA HOLDEN DO [phone] [facility] ServicesD- [id number] CLINICAL DOCUMENTATION CLARIFICATION FORM: POST DISCHARGE Addendum to original discharge summary date: ____ Late entry note date: ____Colitis with undetermined organism Please exercise your independent, professional judgment in responding to the clarification form. Clinical indicators are provided on the bottom of this form for your review. Please clarify the type of colitis documented in the record. Thank you Please check appropriate box(s): [ x ] Infectious Colitis [ ] Noninfectious Colitis [ ] Crohns Disease: [ ] Colitis: Site (if applicable): [ ] Small Intestine[ ] Large Intestine[ ] Other site Type:Complications: [ ] Colitis due to radiation[ ] Bleeding [ ] Ulcerative Colitis[ ] Intestinal Obstruction [ ] Infectious Colitis [ ] Fistula [ ] Diverticular Colitis [ ] Abscess [ ] C-diff Colitis[ ] Other complication [ ] Toxic Colitis[ ] No complication [ ] Ischemic Colitis [ ] Colitis due to [ ] Other specified [ ] Other diagnosis [ ] Unable to determine In addition, please specify: Present on Admission (POA): [ x ] Yes [ ] No [ ] Unable to determine For continuity of documentation, please document condition throughout progress notes and discharge summary. Thank You. CLINICAL INDICATORS - SIGNS / SYMPTOMS / LABS Abdominal pain Cramping Diarrhea/Constipation Fatigue Changes in bowel habits: Weight loss C Diff. -Negative RISK FACTORS Recent antibiotic regimen History of Colitis or Crohns Disease Heavy NSAIDs use Immunocompromised TREATMENT: Antibiotics Stool studies Steroids/Prednisone IVF (This form is maintained as a part of the permanent medical record) 2014 [employer] All Rights Reserved Ronda [email or web address] [phone] CHRISTIAN
--- NOTE | 2017-09-27 11:45 | EKG ---
Test Reason : ABD PAIN Blood Pressure : / mmHG Vent. Rate : 087 BPM Atrial Rate : 087 BPM P-R Int : 156 ms QRS Dur : 088 ms QT Int : 404 ms P-R-T Axes : 064 023 045 degrees QTc Int : 486 ms Normal sinus rhythm Septal infarct , age undetermined Abnormal ECG Confirmed by ROMINA MAX, INO ([id number]), clinical editor JULIO LEBRON ([id number]) on 09/27/2017 11:45:03 AM Referred By: Confirmed By:INO VANEGAS MD
== END 2017-09-16 14:42 | disposition home or self-care (01) | DRG 392 ==
LOC: ERS 03:52 → T4-B 06:00
PROVIDERS: ADMIT Hospitalist; ATTEND Hospitalist
DX: A09 Infectious gastroenteritis and colitis, unspecified (principal); E87.1 Hypo-osmolality and hyponatremia; E87.6 Hypokalemia; D64.9 Anemia, unspecified; I10 Essential (primary) hypertension
CPT/HCPCS: 36415; 74177; 80048; 80053; 81003; 81015; 82274; 82553; 83630; 83690; 83880; 84484; 85007; 85025; 85027; 86850; 86900; 86901; 87045; 87046; 87086; 87324; 87449; 87899; 93005; 94760; 96361; 96365; 96368; 96375; A4216; J0744; J1956; J2270; J2550; J7050; Q0162; S0028

== ENCOUNTER 2018-06-23 15:39 | Outpatient (CLI) | payer MEDICARE ==
--- NOTE | 2018-06-23 16:13 | RAD ---
FExam: Lumbar spine 2 views: History rheumatoid arthritis. Comparison 07/17/2016 FINDINGS: Stable scoliotic curvature of the lumbar spine. There is demineralization with evidence of laminectomy defects at multiple levels of the lumbar spine. Lumbar spine vertebral body height appear s to be maintained. No fracture. Atherosclerosis of the aorta is noted IMPRESSION: Degenerative changes lumbar spine as above. Stable scoliosis. Transcribed Date/Time: 06/23/2018 4:29 PM
--- NOTE | 2018-06-23 16:19 | RAD ---
FFrontal and lateral imaging of the thoracic spine: 06/23/2018 COMPARISON: None HISTORY: Arthritis, pain FINDINGS: Prominent degenerative changes are noted in the upper lumbar spine, incompletely assessed o n this exam. Multilevel mild disc space narrowing and anterior osteophyte formation noted within the thoracic spine, most prominent at the T6-7 and T7-8 levels. No anterolisthesis or retrolisthesis. Sev ere degenerative changes are noted within the cervical spine with exaggerated cervical kyphosis and m ultilevel severe disc space narrowing, degenerative endplate change, and facet hypertrophic change. D edicated cervical spine radiographs are suggested. IMPRESSION: Prominent degenerative changes of the cervical spine and the lumbar spine, not well asses sed on this exam. No evidence for thoracic spine fracture.
== END 2018-06-23 15:40 | disposition home or self-care (01) ==
LOC: BICRAD 15:39
PROVIDERS: ATTEND Internal Medicine Rheumatology
DX: M05.79 Rheumatoid arthritis with rheumatoid factor of multiple sites without organ or systems involvement (principal); M47.812 Spondylosis without myelopathy or radiculopathy, cervical region; M47.816 Spondylosis without myelopathy or radiculopathy, lumbar region; M41.9 Scoliosis, unspecified
CPT/HCPCS: 72070; 72100

== ENCOUNTER 2018-07-21 15:11 | Outpatient (CLI) | payer MEDICARE ==
--- NOTE | 2018-07-21 16:08 | BD ---
EXAM: DEXA bone density examination HISTORY: Age-related osteoporosis without current pathological fracture COMPARISON: Previous DEXA evaluation from 03/11/2017 and 05/13/2014 was reviewed. FINDINGS: L1--bone mineral density 0.969 g/sq cm; T score -0.2. Z score 2.2 L2--bone mineral density 1.090 g/sq cm; T score 0.6; Z score 3.2 L3--bone mineral density 1.235 g/sq cm; T score 1.4; Z score 4.2 L4--bone mineral density 1.037 g/sq cm; T score -0.2, Z score 2.7 Total L1-L4--bone mineral density 1.073 g/sq cm; T score 0.2, Z score 3.0 Right femoral neck--bone mineral density0.963; T score 1.0, Z score 3.4 Total proximal right femur--bone mineral density 1.264; T score 2.6, Z score 4.8 This patient has a 10 year WHO fracture risk of a major osteoporotic fracture of 3.3% and of a hip fr acture of 0.3%. IMPRESSION: Based on the WHO criteria, the patient's bone mineral density is considerednormal. The pa tient's risk for fracture is low.
== END 2018-07-21 15:12 | disposition home or self-care (01) ==
LOC: BICMAMMO 15:11
PROVIDERS: ATTEND Internal Medicine Rheumatology
DX: M81.0 Age-related osteoporosis without current pathological fracture (principal)
CPT/HCPCS: 77080

== ENCOUNTER 2018-08-25 14:30 | Emergency (ER) | payer MEDICARE | END 2018-08-25 15:10 | disposition home or self-care (01) | LOC: SCSER 14:30 | DX: B02.9 Zoster without complications (principal); I10 Essential (primary) hypertension; F32.9 Major depressive disorder, single episode, unspecified; K21.9 Gastro-esophageal reflux disease without esophagitis; Z79.899 Other long term (current) drug therapy | CPT/HCPCS: 99282 ==

== ENCOUNTER 2018-11-13 22:31 | Observation (INO) | payer MEDICARE ==
[2018-11-13 23:02] LABS: #Basophils 0.1 thou/uL (0.0-0.2); #Eosinphils 0.2 thou/uL (0.0-0.7); #Lymphocytes 3.3 thou/uL (1.20-3.40); #Monocytes 0.6 thou/uL (0.11-0.59); %Basophils 0.6 % (0.0-1.0); %Eosinophils 1.6 % (0.0-10.0); %Lymphocytes 32.3 % (21.0-51.0); %Monocytes 6.1 % (0.0-10.0); %Neutrophils 59.3 % (42.0-75.0); Hemoglobin 11.7 g/dL (12.0-16.0); Mean Corpuscular HGB CONC 32.6 g/dL (32.0-36.0); Mean Corpuscular Hemoglobin 31.1 pg (27.0-31.0); Mean Corpuscular Volume 95.3 fL (78.0-98.0); Mean Platelet Volume 7.1 fL (7.4-10.4); Platelet Count 326 thou/uL (130-400); RBC Distribution Width 12.3 % (11.5-14.5); Red Blood Cell (RBC) Count 3.77 mill/uL (4.20-5.40); White Blood Cell (WBC) Count 10.2 thou/uL (4.8-10.8)
[2018-11-13 23:24] LABS: ALT (SGPT) 25 U/L (8-55); AST (SGOT) 32 U/L (5-34); Albumin 3.9 g/dL (3.4-4.8); Alkaline Phosphatase 71 U/L (40-150); Anion Gap 14 mmol/L (10-20); BUN (Urea Nitrogen) 27 mg/dL (9.8-20.1); Bilirubin, Total 0.3 mg/dL (0.2-1.2); Calc. Creatinine Clearance 0 mL/min (70-130); Calcium 9.5 mg/dL (7.8-10.44); Carbon Dioxide 27 mmol/L (23-31); Chloride 94 mmol/L (98-107); Estimated GFR-MDRD 78; Globulin 4.9 g/dL (2.4-3.5); Glucose 94 mg/dL (83-110); Potassium 3.7 mmol/L (3.5-5.1); Protein, Total 8.8 g/dL (6.0-8.3); Sodium 131 mmol/L (136-145)
--- NOTE | 2018-11-14 00:40 | RAD ---
EXAM: CHEST ONE VIEW HISTORY: Shortness of breath and productive cough for one week. COMPARISON: 08/19/2017 FINDINGS: The cardiac silhouette and pulmonary vasculature is within normal limits. There are linear densities again seen at the left lung base and to a lesser extent the right lung base probably due to mild scarring. The areas of parenchymal opacity and consolidation in the right upper lung zone at the left lung base are no longer seen. Linear density is seen in the right midlung zone probably due to mild scarring. No pleural effusion is evident. Degenerative changes noted in the spine. Vascular calc ifications are seen in thoracic aorta. IMPRESSION: 1. No acute cardiopulmonary process. 2. Probable mild scarring at each lung base and in the right midlung zone.
[2018-11-14] MEDS ORDERED: methylPREDNISolone Sod Succ/PF 125 MG/2 ML VIAL ONE (01:08)
[2018-11-14 04:43] VITALS: BMI 17.5
--- NOTE | 2018-11-14 08:13 | CT ---
PRELIMINARY REPORT/[facility]/EMERGENCY AFTER HOURS PROCEDURE: EXAM: CT Angiography Chest With Contrast EXAM DATE/TIME: 11/14/2018 2:04 AM CLINICAL HISTORY: 83 years old, female; Patient HX: 83f presenting with shortness of breath. PT reports allergies and p roductive cough x 1 week. She reports today after son was mowing, she had a coughing fit and felt lik e her airway was closing. PT reports her breathing has improved but still feels short of breath. Elev ated d-dimer TECHNIQUE: Imaging protocol: Computed tomographic angiography images of the chest with intravenous contrast usin g CT angiography protocol. 3D rendering: MIP reconstructed images were created and reviewed. COMPARISON: No relevant prior studies available. FINDINGS: Pulmonary arteries: The main pulmonary artery measures 3.3 cm. Aorta: Unremarkable. No aortic aneurysm. No aortic dissection. Lungs: Bronchiectasis with focal dilatation of the right upper lobe. It is also adjacent to a focal o pacity. On the oblique reconstructed images there is suggestion of possible partial wall thickening. There are subpleural lucencies with visible tam, probably from paraseptal emphysema. Pleural space: Unremarkable. No pneumothorax. No pleural effusion. Heart: Unremarkable. No cardiomegaly. No pericardial effusion. Lymph nodes: Calcified subcarina nodes. Bones/joints: Unremarkable. No acute fracture. Soft tissues: Unremarkable. IMPRESSION: 1. No pulmonary embolism. 2. Ectatic main pulmonary artery. 3. Emphysematous changes with bronchiectasis. Focal cystic dilatation with adjacent opacity and possi ble partial wall thickening of the right upper lobe cannot exclude cavitary lesion. Thank you for allowing us to participate in the care of your patient. Dictated and Authenticated by: Kaitlin Evans DO 11/14/2018 2:32 AM Central Time ([place] & [place]) FINAL REPORT CTA CHEST WITH 3D VOLUME RENDERING WITH CONTRAST: The final report is in agreement with the above-provided preliminary interpretation. POS: BRITTANY
[2018-11-14] MEDS ORDERED: Ondansetron ODT 4 MG TAB PO PRN (09:05)
[2018-11-14] MEDS ORDERED: Ondansetron PF 4 MG/2 ML Vial IVP PRN (09:05)
[2018-11-14] MEDS ORDERED: traMADol HCl 50 MG TAB PO PRN (09:06)
[2018-11-14] MEDS ORDERED: ALPRAZolam 0.5 MG TAB PO PRN (09:06)
[2018-11-14] MEDS: Carvedilol 6.25 MG TAB PO SCH (09:42)
[2018-11-14] MEDS: NIFEdipine XL 60 MG TAB PO SCH (09:42)
[2018-11-14] MEDS: Hydrochlorothiazide 25 MG TAB PO SCH (09:42)
[2018-11-14] MEDS: cefTRIAXone\\ROCEPHIN 2 GM in Sodium Chloride 0.9% 100 ML IVPB SCH (09:43)
[2018-11-14] MEDS: Loratadine 10 MG TAB PO SCH (09:43)
[2018-11-14] MEDS: Acetaminophen 325 MG TAB PO PRN ×2 (10:14→20:43)
[2018-11-14] MEDS: Azithromycin 500 MG in Sodium Chloride 0.9% 250 ML 250 ML IVPB SCH (10:14)
[2018-11-14] MEDS ORDERED: Iopamidol 370 76% 100 ML VIAL ONE (11:12)
--- NOTE | 2018-11-14 11:32 | HP ---
PRIMARY CARE PHYSICIAN: Andreas Barrios MD HISTORY OF PRESENT ILLNESS: Ms. Fenton is a pleasant 83-year-old female, with past medical history of hypertension, gastroesophageal reflux disease, and osteoarthritis, who had presented to [facility] late last night due to a worsening cough and shortness of breath over the last week. She states that she had allergies of flare about 2 weeks ago and since then, she has noticed this worsening productive cough. She states yesterday afternoon her was outside mowing the lawn and she had a coughing fit, which had caused quite a bit of phlegm production, which has caused her to vomit x1. She had denied any fever, chills, any headache, blurred vision, dizziness, any abdominal pain, change in her stool, or swelling down her upper or lower extremities. She had stated that she had felt some chest tightness and she was unable to get a full breath of air. Therefore, she was taken to the ER. Upon arriving, it was noted that her D-dimer elevated at 3.64. However, CTA was negative for PE at this time. She also underwent a portable chest x-ray, which was unremarkable; however, did show some probable mild scarring at each lung base and in the right mid lung zone. CTA did show some changes that would reflect emphysema or bronchiectasis. She was given IV Solu-Medrol and a nebulizer treatment in the Emergency Department, which she states had improved her symptoms. She states that she used to take Ventolin inhaler; however, she has not used this in quite some time now. REVIEW OF SYSTEMS: All other systems reviewed and found to be negative unless mentioned in the HPI. PAST MEDICAL HISTORY: Hypertension, osteoarthritis, and gastroesophageal reflux disease. PAST SURGICAL HISTORY: Colon resection, left total knee and right knee replacement, bilateral cataract surgery, and low back surgery. PSYCHIATRIC HISTORY: None. SOCIAL HISTORY: The patient denies alcohol, tobacco, or illicit drug use. KNOWN ALLERGIES: Penicillin, pentazocine, and lactate. CURRENT HOME MEDICATIONS: 1. Alprazolam 0.5 mg p.o. at bedtime. 2. Aspirin 81 mg daily. 3. Carvedilol 12.5 mg p.o. daily. 4. Hydrochlorothiazide 25 mg p.o. q.a.m. 5. Nifedipine 60 mg p.o. q.a.m. 6. Tramadol 50 mg p.o. q.i.d. p.r.n. pain. 7. Folic acid 1 mg p.o. daily. 8. Ibuprofen 400 mg p.o. q.6 hours as needed for pain. 9. Omeprazole 2.5 mg p.o. daily. 10. Prednisone 10 mg p.o. daily. 11. Ventolin 2 puff inhalation q.4 hours as needed for shortness of breath or wheezing. PHYSICAL EXAMINATION: VITAL SIGNS: BP 149/78, pulse 80, respirations 16, temperature 98.0, and O2 of 98% on room air. GENERAL: The patient is awake, alert, and oriented x3. She is currently lying comfortably in bed and in no acute distress. Her daughter is at bedside. HEENT: Atraumatic and normocephalic. Pupils are round and reactive to light. Extraocular muscles intact. Moist mucous membranes noted. NECK: Soft and supple. Trachea midline. CARDIOVASCULAR: Positive S1 and S2. Regular rate and rhythm. No murmur auscultated. RESPIRATORY: Coarse breath sounds heard at the bases, otherwise unremarkable. Chest expansion equal and normal bilaterally. ABDOMEN: Soft and nontender. Bowel sounds present. MUSCULOSKELETAL: Strength 5+ bilaterally upper and lower extremities. Moves all extremities equal. No edema noted. NEUROLOGIC: Cranial nerves 2 through 12 grossly intact. No focal deficits noted. Speech intact and normal. Gait not assessed. SKIN: Warm, dry, and intact. No rashes. No ulceration noted. PSYCH: Good mood and affect. LABORATORY DATA: WBC 10.2, RBC 3.77, hemoglobin 11.7, and platelets 326. D-dimer 3.64. Sodium 131, potassium 3.7, anion gap 14, BUN 27, creatinine 0.85, estimated GFR 78, and glucose 94. Troponin 0.020 and BNP 30.3. DIAGNOSTIC IMAGING: Portable chest x-ray showed no acute cardiopulmonary process; however, did show some probable mild scarring at each lung base and in the right mid lung zone. CTA chest revealed no pulmonary embolism. Ectatic main pulmonary artery and emphysema changes with bronchiectasis. ASSESSMENT AND PLAN: 1. Cough and shortness of breath. This could likely be acute on chronic emphysema/chronic obstructive pulmonary disease. Therefore, she will be treated with IV Solu-Medrol 40 mg q.6 hours along with DuoNeb treatments as needed for wheezing and shortness of breath. She will also be started on IV ceftriaxone and azithromycin for coverage. 2. Hypertension, currently stable at this time. She will be resumed on her home regimen. 3. Gastroesophageal reflux disease. Continue proton pump inhibitor. 4. Osteoarthritis and rheumatoid arthritis. Continue home regimen at this time. 5. Deep venous thrombosis and gastrointestinal prophylaxis. 6. Code status. Full code. 7. Surrogate decision maker is her spouse, Sky. 8. Disposition pending further workup and clinical findings, the patient will likely be discharged home in the next 1 to 2 days. Job ID: [id number]
--- NOTE | 2018-11-14 11:52 | EKG ---
Test Reason : Blood Pressure : / mmHG Vent. Rate : 079 BPM Atrial Rate : 079 BPM P-R Int : 164 ms QRS Dur : 084 ms QT Int : 380 ms P-R-T Axes : 039 029 046 degrees QTc Int : 435 ms Normal sinus rhythm Normal ECG Confirmed by CATRACHITO VENCES M.D. ([id number]), editor index JULIO LEBRON ([id number]) on 11/14/2018 11:52:16 AM Referred By: Confirmed By:CATRACHITO VENCES M.D.
[2018-11-14] MEDS: methylPREDNISolone Sod Succ 40 MG VIAL IVP SCH ×3 (11:58→23:58)
[2018-11-14] MEDS ORDERED: Famotidine 20 MG TAB PO SCH (21:00)
[2018-11-15] MEDS: methylPREDNISolone Sod Succ 40 MG VIAL IVP SCH ×2 (05:39→13:08)
[2018-11-15 08:14] VITALS: TEMP 98
[2018-11-15] MEDS: Carvedilol 6.25 MG TAB PO SCH (08:27)
[2018-11-15] MEDS: NIFEdipine XL 60 MG TAB PO SCH (08:27)
[2018-11-15] MEDS: cefTRIAXone\\ROCEPHIN 2 GM in Sodium Chloride 0.9% 100 ML IVPB SCH (08:27)
[2018-11-15] MEDS: Hydrochlorothiazide 25 MG TAB PO SCH (08:27)
[2018-11-15] MEDS: Loratadine 10 MG TAB PO SCH (08:27)
[2018-11-15] MEDS: Acetaminophen 325 MG TAB PO PRN (08:39)
[2018-11-15] MEDS ORDERED: Enoxaparin Sodium 40 MG/0.4 ML SYRINGE SC SCH (09:00)
[2018-11-15] MEDS ORDERED: Aspirin 81 mg Enteric Coated Tablet PO SCH (09:00)
[2018-11-15] MEDS: Azithromycin 500 MG in Sodium Chloride 0.9% 250 ML 250 ML IVPB SCH (10:04)
[2018-11-15 12:15] VITALS: BP 124/62
== END 2018-11-15 13:15 | disposition home or self-care (01) ==
LOC: ERS 22:31 → 2SW 11-14 01:12
PROVIDERS: ADMIT Hospitalist; ATTEND Hospitalist
DX: R06.02 Shortness of breath (principal); R05 Cough; I10 Essential (primary) hypertension; K21.9 Gastro-esophageal reflux disease without esophagitis; M19.90 Unspecified osteoarthritis, unspecified site; M06.9 Rheumatoid arthritis, unspecified; R79.1 Abnormal coagulation profile; Z79.52 Long term (current) use of systemic steroids; Z79.82 Long term (current) use of aspirin; Z79.899 Other long term (current) drug therapy; Z88.0 Allergy status to penicillin; Z88.8 Allergy status to other drugs, medicaments and biological substances; Z90.49 Acquired absence of other specified parts of digestive tract
CPT/HCPCS: 71045; 71275; 80053; 83880; 84484; 85025; 85379; 87040; 87070; 87077; 87186; 87205; 87633; 93005; 94640 ×2; 94760; 96365; 96366; 96372; 96374; 96375 ×2; 96376 ×2; 97139 ×2; 99285; G0378 ×3; 36415; J0456; J0696; J1650; J2920; J2930; J3490; J7050; J7620; Q0162; Q9967

== ENCOUNTER 2019-01-24 20:59 | Observation (INO) | payer MEDICARE ==
[2019-01-24 21:48] LABS: #Basophils 0.1 thou/uL (0.0-0.2); #Eosinphils 0.1 thou/uL (0.0-0.7); #Lymphocytes 2.6 thou/uL (1.20-3.40); #Monocytes 0.4 thou/uL (0.11-0.59); #Neutrophils 6.1 thou/uL (1.40-6.50); %Eosinophils 1.2 % (0.0-10.0); %Lymphocytes 27.8 % (21.0-51.0); %Neutrophils 66.1 % (42.0-75.0); Hemoglobin 13.1 g/dL (12.0-16.0); Mean Corpuscular HGB CONC 33.2 g/dL (32.0-36.0); Mean Corpuscular Hemoglobin 30.4 pg (27.0-31.0); Mean Corpuscular Volume 91.5 fL (78.0-98.0); Mean Platelet Volume 8.6 fL (7.4-10.4); Platelet Count 402 thou/uL (130-400); RBC Distribution Width 13.2 % (11.5-14.5); Red Blood Cell (RBC) Count 4.31 mill/uL (4.20-5.40); White Blood Cell (WBC) Count 9.2 thou/uL (4.8-10.8)
--- NOTE | 2019-01-24 21:55 | RAD ---
XR Chest 1 View Portable HISTORY: Syncope hypotension COMPARISON: 11/13/2018 study FINDINGS: Heart size within normal limits. There are atherosclerotic changes of aorta. Some linear sc arring is seen in the left base. IMPRESSION: No active intrathoracic disease.
--- NOTE | 2019-01-24 21:56 | CT ---
Back CT Brain WO Con HISTORY: Syncope. COMPARISON: 08/03/2014 study FINDINGS: There is generalized ventricular and sulcal prominence. There is no signs of intracerebral hemorrhage or extra-axial fluid collections. The mastoid air cells and visualized sinuses are clear. IMPRESSION: No acute intracranial abnormalities.
[2019-01-24 22:42] LABS: Albumin 3.5 g/dL (3.4-4.8)
[2019-01-24 22:43] LABS: Chloride 97 mmol/L (98-107); Sodium 133 mmol/L (136-145)
[2019-01-24 22:44] LABS: Glucose 109 mg/dL (83-110)
[2019-01-24 22:45] LABS: Globulin 4.8 g/dL (2.4-3.5); Protein, Total 8.3 g/dL (6.0-8.3)
[2019-01-24 22:46] LABS: Anion Gap 17 mmol/L (10-20); Bilirubin, Total 0.5 mg/dL (0.2-1.2); Carbon Dioxide 23 mmol/L (23-31)
[2019-01-24 22:47] LABS: Alkaline Phosphatase 60 U/L (40-110)
[2019-01-24 22:48] LABS: Calc. Creatinine Clearance 0 mL/min (70-130); Estimated GFR-MDRD 50
[2019-01-24 22:48] LABS: CKMB 0.9 ng/mL (0-6.6)
[2019-01-24 22:49] LABS: BUN (Urea Nitrogen) 32 mg/dL (9.8-20.1)
[2019-01-24 22:50] LABS: ALT (SGPT) 52 U/L (8-55); AST (SGOT) 55 U/L (5-34)
[2019-01-25] MEDS: Sodium Chloride 0.9% 1,000 ML IV SCH ×2 (00:13→09:29)
[2019-01-25 00:32] VITALS: BMI 18.1
[2019-01-25 01:27] LABS: Troponin I Less than 0.010 ng/mL (< 0.028)
[2019-01-25 03:51] LABS: Troponin I Less than 0.010 ng/mL (< 0.028)
[2019-01-25] MEDS ORDERED: Senokot S 8.6-50 MG TAB PO PRN (11:31)
[2019-01-25] MEDS ORDERED: ALPRAZolam 0.5 MG TAB PO PRN (11:32)
[2019-01-25] MEDS ORDERED: Sodium Chloride 0.9% 1,000 ML IV SCH (12:45)
--- NOTE | 2019-01-25 14:03 | ULT ---
BILATERAL CAROTID DUPLEX ULTRASOUND: HISTORY: Syncope TECHNIQUE: Grayscale, color-flow and spectral Doppler ultrasound imaging of the extracranial carotid artery syst ems was performed bilaterally. FINDINGS: Mild plaque formation. The peak systolic velocity in the right ICA measures 60 cm/s. The peak systolic velocity in the left ICA measures 55 cm/s. The left ICA is tortuous. Vertebral flow: antegrade, bilaterally. IMPRESSION: No hemodynamically significant stenosis of Both ICAs.
[2019-01-25] MEDS: Acetaminophen 325 MG TAB PO PRN ×2 (14:29→22:34)
--- NOTE | 2019-01-25 22:58 | HP ---
CHIEF COMPLAINT: Syncope. HISTORY OF PRESENT ILLNESS: The patient is an 83-year-old female with past medical history of hypertension, GERD, rheumatoid arthritis, and osteoarthritis, who presents to the hospital with complaints of syncopal episode. The patient stated that she has been feeling dizzy for the past couple of weeks. According to her, she has not been eating or drinking very much due to less appetite. The patient stated that the day prior to coming into the hospital, she felt very dizzy while she was standing to the point that she almost passed out for maybe about a minute and then when she woke up, she was on the floor. The patient stated that her dizziness can happen any time when she is sitting or when she is getting up or when she is walking. She denies any room spinning activity. The patient states that she denies any palpitations or diaphoresis. She does have a history of PACs. She denies starting of any new medications or any increasing any of her blood pressure medications. According to her, she has not even lost significant amount of weight. She lost weight last year. PAST MEDICAL HISTORY: 1. Hypertension. 2. Osteoarthritis. 3. GERD. 4. Rheumatoid arthritis. PAST SURGICAL HISTORY: She has had colon resection, left total knee and right knee replacement, bilateral cataract surgery, and surgery. REVIEW OF SYSTEMS: All negative except for the ones mentioned above. SOCIAL HISTORY: She denies any alcohol use, drug use, or tobacco history. She is a full code. Lives with her family. ALLERGIES: SHE IS ALLERGIC TO PENICILLIN, PENTAZOCINE. MEDICATIONS: She takes: 1. Alprazolam 0.5 mg daily. 2. Aspirin 81 mg daily. 3. Carvedilol 12.5 mg daily. 4. Hydrochlorothiazide 25 mg q.a.m. 5. Nifedipine 60 mg q.a.m. 6. Tramadol 50 mg q.i.d. p.r.n. 7. Folic acid one p.o. daily. 8. Ibuprofen. 9. Omeprazole. 10. Prednisone. 11. Ventolin. 12. She is also on subcu injection for her rheumatoid arthritis. PHYSICAL EXAMINATION: VITAL SIGNS: Temperature of 98.5, pulse 97, respirations 16, 96% on room air, blood pressure 127/64. GENERAL: She is awake, alert, and oriented x3. Does not appear in distress. HEENT: Normocephalic, atraumatic. No lymphadenopathy noted. Pupils equal reactive to light. CV: S1 and S2 present. No murmurs, rubs, or gallops. LUNGS: Clear to auscultation. No rhonchi or wheezes noted. ABDOMEN: Soft and nontender. Bowel sounds are present x2. EXTREMITIES: No edema. NEUROLOGICAL: No focal deficits noted. SKIN: No cuts, lesions, or bruises noted. LABORATORY RESULTS: WBCs of 9.2, hemoglobin of 13.1, hematocrit of 39.4, platelets of 402. Chemistry; sodium of 133, potassium of 4.0, BUN of 32, creatinine 1.25. Her troponin initially was 0.032, then was normal. There was no urine test done on this patient. She did have a CT brain, which was normal. She also had a chest x-ray, which was essentially normal. ASSESSMENT AND PLAN: The patient is an 83-year-old female, who presents to the hospital with complaints of syncope. 1. Syncope, could be cardiac related versus dehydration versus medication related. The patient is on 3 blood pressure medications, one is carvedilol, one is hydrochlorothiazide, and one is the nifedipine. I will hold off the hydrochlorothiazide for now and all her blood pressure medications. We will continue to monitor her. I will hydrate her gently. I will get a carotid Doppler and also get an echocardiogram. If those are negative, may consider getting an MRI if her symptoms still persist. 2. Rheumatoid arthritis. I will continue her home medications. 3. Acute kidney injury. Her baseline creatinine is at 0.85. I will check labs again tomorrow after hydration. We will continue to monitor. 4. Deep vein thrombosis prophylaxis. We will put the patient on some SCDs. Job ID: [id number]
[2019-01-26 06:15] LABS: #Eosinphils 0.3 thou/uL (0.0-0.7); #Lymphocytes 2.6 thou/uL (1.20-3.40); #Monocytes 0.3 thou/uL (0.11-0.59); #Neutrophils 4.5 thou/uL (1.40-6.50); %Basophils 0.6 % (0.0-1.0); %Eosinophils 4.2 % (0.0-10.0); %Lymphocytes 33.3 % (21.0-51.0); %Monocytes 3.7 % (0.0-10.0); %Neutrophils 58.1 % (42.0-75.0); Hemoglobin 10.8 g/dL (12.0-16.0); Mean Corpuscular HGB CONC 31.8 g/dL (32.0-36.0); Mean Corpuscular Hemoglobin 29.5 pg (27.0-31.0); Mean Corpuscular Volume 92.6 fL (78.0-98.0); Mean Platelet Volume 6.9 fL (7.4-10.4); Platelet Count 338 thou/uL (130-400); RBC Distribution Width 12.8 % (11.5-14.5); Red Blood Cell (RBC) Count 3.67 mill/uL (4.20-5.40); White Blood Cell (WBC) Count 7.8 thou/uL (4.8-10.8)
[2019-01-26 06:44] LABS: Anion Gap 12 mmol/L (10-20); BUN (Urea Nitrogen) 25 mg/dL (9.8-20.1); Calc. Creatinine Clearance 40 mL/min (70-130); Calcium 8.4 mg/dL (7.8-10.44); Carbon Dioxide 24 mmol/L (23-31); Chloride 100 mmol/L (98-107); Estimated GFR-MDRD 69; Glucose 79 mg/dL (83-110); Potassium 3.4 mmol/L (3.5-5.1); Sodium 133 mmol/L (136-145)
[2019-01-26] MEDS ORDERED: Potassium Chloride 20 MEQ TAB PO SCH ×2 (08:45→16:30)
[2019-01-26] MEDS ORDERED: Carvedilol 6.25 MG TAB PO SCH ×3 (08:45→17:00)
[2019-01-26] MEDS ORDERED: Loratadine 10 MG TAB PO SCH (09:00)
[2019-01-26] MEDS ORDERED: Aspirin 81 mg Enteric Coated Tablet PO SCH (09:00)
[2019-01-26] MEDS ORDERED: Tetrahydrozoline 0.05% OPTH 15 ML BOT EA EYE SCH (09:00)
[2019-01-26] MEDS ORDERED: NIFEdipine XL 30 MG TAB PO SCH (09:00)
[2019-01-26] MEDS ORDERED: predniSONE 5 MG TAB PO SCH (09:00)
[2019-01-26] MEDS ORDERED: Enoxaparin Sodium 40 MG/0.4 ML SYRINGE SC SCH (09:00)
[2019-01-26] MEDS ORDERED: NIFEdipine XL 60 MG TAB PO SCH (09:00)
[2019-01-26] MEDS ORDERED: Folic Acid 1 MG TAB PO SCH (09:00)
[2019-01-26] MEDS: Acetaminophen 325 MG TAB PO PRN (09:26)
[2019-01-26 15:28] LABS: Bilirubin Negative (Negative); Blood, Urine 3+ (Negative); Clarity Turbid (Clear); Glucose, Urine (Dipstick) Normal (Negative); Leukocyte 250 Leu/uL (Negative); Nitrite Negative (Negative); Protein, Urine (Dipstick) 30 mg/dL (Neg-Trace); RBC/HPF Greater than 50 HPF (0-3); Renal Epithelial 0-3 HPF (None Seen); Squamous Epithelial 0-3 HPF (0-3); Transitional Epithelial 0-3 HPF (None Seen); Urobilinogen Normal mg/dL (Less than 2); WBC/HPF 21-50 HPF (0-3)
[2019-01-26 15:39] LABS: Bacteria/HPF 2+ HPF (None Seen)
[2019-01-26 15:41] LABS: Urine Culture Reflex Yes Yes
[2019-01-26 16:27] VITALS: TEMP 98.2
[2019-01-26 16:57] VITALS: BP 142/70
--- NOTE | 2019-01-26 19:12 | DIS ---
DATE OF ADMISSION: 01/25/2019 DATE OF DISCHARGE: 01/26/2019 DISCHARGE DIAGNOSES: 1. Syncope. 2. Rheumatoid arthritis. 3. History of premature atrial contractions. 4. Hypertension. 5. Acute kidney injury. HOSPITAL COURSE: The patient is an 83-year-old female who initially presented to the hospital with complaints of dizziness and had a syncopal episode for about a minute. The patient stated that this has been going on for the past couple of weeks. She also states that she has not been eating or drinking very much for the past week; however, she has not really significantly lost any weight. No new medications were added. The patient initially had a CT head and a chest x-ray, which were essentially normal. Her urine did not show any acute abnormalities. We went ahead and did carotid Dopplers on her which also were normal. She does have some mild plaque. I did do echocardiogram on her, which indicated an EF of 60% to 65%. She was a little bit tachycardic however, at this time, some of her medications were held. Also, she had a small to medium pericardial effusion, which was not significant. No evidence of right atrial or right ventricular collapse. We also checked orthostatics on her. Her orthostatics initially were positive. She was hydrated and she also had some acute kidney injury. The patient was hydrated. Her creatinine came back to baseline. Initially, all her blood pressure medications were held, however, they were slowly reintroduced the next day. I did recommend the patient to undergo an MRI; however, she was very claustrophobic and did not really want to do the test. I have ambulated her with assist that she is at baseline, did not feel dizzy. The patient states that she has a Rheumatology appointment tomorrow and she really wanted to go home. I did advise her that if she goes home and if she does have any other worsening symptoms to come back right into the hospital. I have also advised her to take her blood pressure and her pulse 3 times a day for the next week and take it to her primary care doctor. She also needs to follow up with Cardiology as an outpatient. MEDICATIONS: Her home medications that have the changes I have made are carvedilol was 12.5 daily, I have made it to 6.25 twice a day. Her Procardia that was she was taking 60 mg daily, I decreased it to 30 mg daily. I have stopped her hydrochlorothiazide; however, she does have emphasized the fact that she needs her hydrochlorothiazide. I have advised her that since she has not been eating or drinking very much that will be too much medication especially given her heart, her weight and her age. She understands that and she states that appetite is back and she will try and eat as much as she can. 1. Prednisone 10 mg daily. 2. Tramadol 50 mg q.i.d. p.r.n. 3. Aspirin 81 mg daily. 4. Folic acid one p.o. daily. 5. Omeprazole 2.5 daily. 6. Claritin 10 mg daily. 7. Xanax 0.5 at bedtime p.r.n. 8. Eyedrops. PHYSICAL EXAMINATION: VITAL SIGNS: Temperature of 98.8, pulse 84, respirations 16, 96% on room air, blood pressure 120/59. GENERAL: She is awake, alert, and oriented x3. Does not appear in distress. CV: S1, S2 present. No murmurs, rubs, or gallops. ABDOMEN: Soft and nontender. Bowel sounds are present x2. The patient was initially orthostatic upon standing, however we rechecked orthostatics and her numbers appear much improved compared to her previous one after some hydration. I have advised her to not take the hydrochlorothiazide for now until she sees her primary and also to keep a log of all her blood pressures. I also have advised her to eat and drink a little bit more water and if her symptoms worsen, she needs to come back into the hospital for further evaluation. Job ID: [id number]
== END 2019-01-26 17:58 | disposition home or self-care (01) ==
LOC: ERS 20:59 → 2SW 01-25 00:22
PROVIDERS: ADMIT Family Medicine; ATTEND Family Medicine
DX: R55 Syncope and collapse (principal); M06.9 Rheumatoid arthritis, unspecified; I10 Essential (primary) hypertension; K21.9 Gastro-esophageal reflux disease without esophagitis; M19.90 Unspecified osteoarthritis, unspecified site; N17.9 Acute kidney failure, unspecified; J44.9 Chronic obstructive pulmonary disease, unspecified; Z79.52 Long term (current) use of systemic steroids; Z79.82 Long term (current) use of aspirin; Z79.899 Other long term (current) drug therapy; Z88.0 Allergy status to penicillin; Z88.5 Allergy status to narcotic agent; Z90.49 Acquired absence of other specified parts of digestive tract
CPT/HCPCS: 70450; 71045; 80048; 80053; 81001; 82553; 84484 ×3; 85025 ×2; 87077; 87086; 87186; 93005; 93306; 93880; 96360; 96361; 96372; 97139 ×2; 97530; 99285; G0378 ×3; 36415; J1650

== ENCOUNTER 2019-12-15 21:48 | Emergency (ER) | payer MEDICARE ==
[2019-12-15] MEDS ORDERED: Ondansetron PF 4 MG/2 ML Vial ONE ×2 (22:33→22:46)
[2019-12-15 23:12] LABS: #Eosinphils 0.3 thou/uL (0.0-0.7); #Lymphocytes 2.9 thou/uL (1.20-3.40); #Monocytes 0.8 thou/uL (0.11-0.59); #Neutrophils 5.9 thou/uL (1.40-6.50); %Basophils 0.3 % (0.0-1.0); %Eosinophils 2.8 % (0.0-10.0); %Lymphocytes 29.3 % (21.0-51.0); %Monocytes 8.1 % (0.0-10.0); %Neutrophils 59.6 % (42.0-75.0); Hemoglobin 11.9 g/dL (12.0-16.0); Mean Corpuscular HGB CONC 32.4 g/dL (32.0-36.0); Mean Corpuscular Hemoglobin 30.5 pg (27.0-31.0); Mean Corpuscular Volume 94.1 fL (78.0-98.0); Platelet Count 198 thou/uL (130-400); RBC Distribution Width 13.5 % (11.5-14.5); Red Blood Cell (RBC) Count 3.92 mill/uL (4.20-5.40); White Blood Cell (WBC) Count 9.9 thou/uL (4.8-10.8)
[2019-12-15 23:34] LABS: ALT (SGPT) 28 U/L (8-55); AST (SGOT) 35 U/L (5-34); Albumin 3.2 g/dL (3.4-4.8); Alkaline Phosphatase 37 U/L (40-110); Anion Gap 16 mmol/L (10-20); BUN (Urea Nitrogen) 32 mg/dL (9.8-20.1); Bilirubin, Total 0.8 mg/dL (0.2-1.2); Calc. Creatinine Clearance 0 mL/min (70-130); Calcium 8.2 mg/dL (7.8-10.44); Carbon Dioxide 22 mmol/L (23-31); Chloride 103 mmol/L (98-107); Estimated GFR-MDRD 44; Globulin 3.7 g/dL (2.4-3.5); Glucose 99 mg/dL (83-110); Potassium 3.5 mmol/L (3.5-5.1); Protein, Total 6.9 g/dL (6.0-8.3); Sodium 137 mmol/L (136-145)
== END 2019-12-16 00:19 | disposition home or self-care (01) ==
LOC: ERS 21:48
DX: N17.9 Acute kidney failure, unspecified (principal); R19.7 Diarrhea, unspecified; R11.0 Nausea; I10 Essential (primary) hypertension; K21.9 Gastro-esophageal reflux disease without esophagitis; M19.90 Unspecified osteoarthritis, unspecified site; Z79.82 Long term (current) use of aspirin; Z79.899 Other long term (current) drug therapy
CPT/HCPCS: 36415; 80053; 85025; 96361; 96374; J2405

== ENCOUNTER 2020-02-10 20:14 | Emergency (ER) | payer MEDICARE ==
[2020-02-10 21:08] LABS: ALT (SGPT) 21 U/L (8-55); AST (SGOT) 35 U/L (5-34); Albumin 3.4 g/dL (3.4-4.8); Alkaline Phosphatase 39 U/L (40-110); Anion Gap 19 mmol/L (10-20); BUN (Urea Nitrogen) 30 mg/dL (9.8-20.1); Bilirubin, Total 0.7 mg/dL (0.2-1.2); Calc. Creatinine Clearance 0 mL/min (70-130); Calcium 8.8 mg/dL (7.8-10.44); Carbon Dioxide 20 mmol/L (23-31); Chloride 98 mmol/L (98-107); Estimated GFR-MDRD 38; Globulin 4.3 g/dL (2.4-3.5); Glucose 98 mg/dL (83-110); Lipase 31 U/L (8-78); Potassium 3.5 mmol/L (3.5-5.1); Protein, Total 7.7 g/dL (6.0-8.3); Sodium 133 mmol/L (136-145)
[2020-02-10 21:22] LABS: Hemoglobin 12.2 g/dL (12.0-16.0); Mean Corpuscular HGB CONC 33.1 g/dL (32.0-36.0); Mean Corpuscular Hemoglobin 30.7 pg (27.0-31.0); Mean Corpuscular Volume 92.7 fL (78.0-98.0); Mean Platelet Volume 8.7 fL (7.4-10.4); Platelet Count 196 thou/uL (130-400); RBC Distribution Width 13.1 % (11.5-14.5); Red Blood Cell (RBC) Count 3.98 mill/uL (4.20-5.40); White Blood Cell (WBC) Count 9.1 thou/uL (4.8-10.8)
[2020-02-10 21:23] LABS: Band 4 % (5-11); Eosinophils 2 % (0-10); Lymphocytes 59 % (21-51); MDiff Complete? YES; Monocytes 13 % (0-10); Neutrophil 21 % (42-75)
[2020-02-10] MEDS ORDERED: Ondansetron PF 4 MG/2 ML Vial ONE (21:47)
--- NOTE | 2020-02-10 22:19 | RAD ---
RADIOGRAPH CHEST 1 VIEW: DATE: 02/10/2020 HISTORY: 84-year-old female with generalized weakness FINDINGS: There are no airspace densities, pulmonary edema, pneumothorax, or cardiomegaly. The lateral costophr enic angles are sharp. IMPRESSION: No acute cardiopulmonary findings.
[2020-02-10] MEDS ORDERED: Morphine 4 MG/ML VIAL ONE (22:57)
[2020-02-10 23:15] LABS: CKMB 2.4 ng/mL (0-6.6)
[2020-02-11 09:38] LABS: SARS-CoV-2 by NAA DETECTED (NotDetected)
[2020-02-11 09:39] LABS: SARS-CoV-2 MS2 Negative; SARS-CoV-2 N Gene Positive; SARS-CoV-2 S Gene Positive; SARS-CoV-2 orf1ab Positive
--- NOTE | 2020-02-12 17:13 | EKG ---
Test Reason : Blood Pressure : / mmHG Vent. Rate : 098 BPM Atrial Rate : 098 BPM P-R Int : 128 ms QRS Dur : 070 ms QT Int : 364 ms P-R-T Axes : 014 005 068 degrees QTc Int : 464 ms Sinus rhythm with Premature atrial complexes Moderate voltage criteria for LVH, may be normal variant Nonspecific ST and T wave abnormality Abnormal ECG Confirmed by KO FOWLER DO ([id number]), marketing editor JULIO LEBRON ([id number]) on 02/12/2020 5:13:25 PM Referred By: Confirmed By:KO FOWLER DO
== END 2020-02-10 23:27 | disposition home or self-care (01) ==
LOC: ERS 20:14
DX: U07.1 COVID-19 (principal); I10 Essential (primary) hypertension; K21.9 Gastro-esophageal reflux disease without esophagitis; M19.90 Unspecified osteoarthritis, unspecified site
CPT/HCPCS: 71045; 80053; 82274; 82553; 83690; 84484; 85025; 93005; U0003; 87635; 96374; 96375; J2270; J2405

== ENCOUNTER 2020-07-13 14:36 | Outpatient (CLI) | payer MEDICARE | END 2020-07-13 14:37 | disposition home or self-care (01) | LOC: BICMAMMO 14:36 | PROVIDERS: ATTEND Internal Medicine Rheumatology | DX: M81.0 Age-related osteoporosis without current pathological fracture (principal) | CPT/HCPCS: 77080 ==

== ENCOUNTER 2021-02-09 10:51 | Outpatient (CLI) | payer MEDICARE | END 2021-02-09 10:52 | disposition home or self-care (01) | LOC: BICMAMMO 10:51 | PROVIDERS: ATTEND Internal Medicine | DX: Z12.31 Encounter for screening mammogram for malignant neoplasm of breast (principal) | CPT/HCPCS: 77063; 77067 ==

== ENCOUNTER 2021-04-30 09:04 | Outpatient (CLI) | payer MEDICARE | END 2021-04-30 09:05 | disposition home or self-care (01) | LOC: BICULT 09:04 | PROVIDERS: ATTEND Internal Medicine Nephrology | DX: N18.30 Chronic kidney disease, stage 3 unspecified (principal); B18.2 Chronic viral hepatitis C; N28.1 Cyst of kidney, acquired | CPT/HCPCS: 76705; 76770 ==

== ENCOUNTER 2021-07-14 16:58 | Inpatient (IN) | payer MEDICARE ==
[~2021-07-14 16:58] MED LIST: Iopamidol-370 76% 500 ML 1 ML ONE
[2021-07-14 17:42] LABS: Hemoglobin 12.4 g/dL (12.0-16.0); Mean Corpuscular Hemoglobin 29.8 pg (27.0-31.0); Mean Platelet Volume 8.6 fL (7.4-10.4); Platelet Count 168 thou/uL (130-400); RBC Distribution Width 13.8 % (11.5-14.5); Red Blood Cell (RBC) Count 4.15 mill/uL (4.20-5.40); White Blood Cell (WBC) Count 8.3 thou/uL (4.8-10.8)
[2021-07-14] MEDS ORDERED: Ondansetron PF 4 MG/2 ML Vial ONE ×2 (17:48→19:10)
[2021-07-14 17:58] LABS: ALT (SGPT) 37 U/L (8-55); AST (SGOT) 66 U/L (5-34); Albumin 3.3 g/dL (3.4-4.8); Alkaline Phosphatase 47 U/L (40-110); Anion Gap 16 mmol/L (10-20); BUN (Urea Nitrogen) 23 mg/dL (9.8-20.1); Calc. Creatinine Clearance 0 mL/min (70-130); Carbon Dioxide 22 mmol/L (23-31); Chloride 102 mmol/L (98-107); Globulin 4.6 g/dL (2.4-3.5); Glucose 98 mg/dL (83-110); Potassium 3.6 mmol/L (3.5-5.1); Protein, Total 7.9 g/dL (5.8-8.1); Sodium 136 mmol/L (136-145)
[2021-07-14 18:02] LABS: Eosinophils 3 % (0-10); Lymphocytes 42 % (21-51); MDiff Complete? YES; Monocytes 8 % (0-10); Neutrophil 41 % (42-75); Ovalocytes SLIGHT = 2-5 cells (100X) (0-1/hpf); Platelet Morphology Comment Appears Adequate; Polychromasia SLIGHT = 2-3 cells (100X) (0-2/hpf); Reactive Lymphocytes 6 % (0-10)
[2021-07-14] MEDS ORDERED: traMADol HCl 50 MG TAB ONE (19:06)
[2021-07-14] MEDS ORDERED: Morphine 4 MG/ML VIAL ONE (19:09)
[2021-07-14 19:31] LABS: Bacteria/HPF Rare-Few HPF (None Seen); Bilirubin Negative (Negative); Blood, Urine Negative (Negative); Clarity Clear (Clear); Glucose, Urine (Dipstick) Normal (Negative); Ketone, Urine Negative (Negative); Leukocyte 75 Leu/uL (Negative); Nitrite Negative (Negative); Protein, Urine (Dipstick) 30 mg/dL (Neg-Trace); RBC/HPF 0-3 HPF (0-3); Specific Gravity, Urine 1.014 (1.002-1.036); Squamous Epithelial 0-3 HPF (0-3)
[2021-07-14] MEDS ORDERED: Aspirin Chewable 81 MG TAB ONE (20:20)
[2021-07-14] MEDS ORDERED: cefTRIAXone\\ROCEPHIN 2 GM VIAL ONE (20:20)
[2021-07-14 20:27] LABS: Lactic Acid 1.5 mmol/L (0.5-2.2)
[2021-07-14] MEDS ORDERED: Sodium Chloride 0.9% 1,000 ML IV SCH (21:45)
[2021-07-14] MEDS ORDERED: Ondansetron ODT 4 MG TAB PO PRN (21:47)
[2021-07-14] MEDS ORDERED: Ondansetron PF 4 MG/2 ML Vial IVP PRN (21:47)
[2021-07-14] MEDS ORDERED: traMADol HCl 50 MG TAB PO PRN (21:55)
[2021-07-14] MEDS ORDERED: Labetalol HCl 100 MG/20 ML VIAL SLOW IVP PRN (22:05)
[2021-07-15 02:15] LABS: Troponin I 0.041 ng/mL (< 0.028)
[2021-07-15] MEDS: Acetaminophen 325 MG TAB PO PRN ×2 (02:23→20:42)
[2021-07-15 02:25] LABS: SARS-CoV-2 NAA Rapid Test Not Detected (NotDetected)
[2021-07-15 02:59] VITALS: BMI 26.1
[2021-07-15 06:26] LABS: Hemoglobin 10.9 g/dL (12.0-16.0); Mean Corpuscular HGB CONC 31.6 g/dL (32.0-36.0); Mean Corpuscular Hemoglobin 29.7 pg (27.0-31.0); Mean Corpuscular Volume 94.1 fL (78.0-98.0); Mean Platelet Volume 8.7 fL (7.4-10.4); Platelet Count 144 thou/uL (130-400); RBC Distribution Width 13.9 % (11.5-14.5); Red Blood Cell (RBC) Count 3.68 mill/uL (4.20-5.40); White Blood Cell (WBC) Count 7.1 thou/uL (4.8-10.8)
[2021-07-15 06:40] LABS: Anion Gap 13 mmol/L (10-20); BUN (Urea Nitrogen) 19 mg/dL (9.8-20.1); Calc. Creatinine Clearance 32 mL/min (70-130); Carbon Dioxide 19 mmol/L (23-31); Chloride 109 mmol/L (98-107); Glucose 69 mg/dL (83-110); Potassium 3.7 mmol/L (3.5-5.1); Sodium 137 mmol/L (136-145)
[2021-07-15 06:43] LABS: Band 2 % (5-11); Eosinophils 2 % (0-10); Lymphocytes 45 % (21-51); MDiff Complete? YES; Monocytes 6 % (0-10); Neutrophil 45 % (42-75)
[2021-07-15] MEDS: Enoxaparin Sodium 30 MG/0.3 ML SYRINGE SC SCH (08:32)
[2021-07-15] MEDS ORDERED: predniSONE 5 MG TAB PO SCH (09:30)
[2021-07-15] MEDS ORDERED: predniSONE 1 MG TAB PO SCH (09:30)
[2021-07-15] MEDS ORDERED: Albuterol Sulfate 2.5 mg/3 ml Neb NEB SCH (09:45)
[2021-07-15] MEDS: Aspirin 81 mg Enteric Coated Tablet PO SCH (10:14)
[2021-07-15] MEDS: Folic Acid 1 MG TAB PO SCH (10:15)
[2021-07-15] MEDS: Carvedilol 6.25 MG TAB PO SCH (16:39)
[2021-07-15] MEDS: Albuterol Sulfate 2.5 mg/3 ml Neb NEB SCH (18:58)
[2021-07-15] MEDS ORDERED: cefTRIAXone\\ROCEPHIN 1 GM in Sodium Chloride 0.9% 100 ML IVPB SCH (20:00)
[2021-07-15] MEDS: Rosuvastatin 10 MG TAB PO SCH (20:44)
[2021-07-15] MEDS ORDERED: DEXT EA EYE SCH (21:00)
[2021-07-15] MEDS ORDERED: PEG EA EYE SCH (21:00)
[2021-07-15] MEDS ORDERED: PVP EA EYE SCH (21:00)
[2021-07-15] MEDS ORDERED: TETRAHYDRZ EA EYE SCH (21:00)
[2021-07-16] MEDS: traMADol HCl 50 MG TAB PO PRN ×3 (00:01→20:34)
[2021-07-16 06:06] LABS: Anion Gap 11 mmol/L (10-20); BUN (Urea Nitrogen) 17 mg/dL (9.8-20.1); Calc. Creatinine Clearance 33 mL/min (70-130); Carbon Dioxide 22 mmol/L (23-31); Chloride 108 mmol/L (98-107); Glucose 76 mg/dL (83-110); Potassium 3.5 mmol/L (3.5-5.1); Sodium 137 mmol/L (136-145)
[2021-07-16 06:33] LABS: Band 2 % (5-11); Eosinophils 1 % (0-10); Hemoglobin 10.5 g/dL (12.0-16.0); Lymphocytes 64 % (21-51); MDiff Complete? YES; Mean Corpuscular HGB CONC 32.1 g/dL (32.0-36.0); Mean Corpuscular Hemoglobin 30.5 pg (27.0-31.0); Mean Corpuscular Volume 95.1 fL (78.0-98.0); Monocytes 9 % (0-10); Neutrophil 23 % (42-75); Platelet Count 136 thou/uL (130-400); RBC Distribution Width 13.7 % (11.5-14.5); Red Blood Cell (RBC) Count 3.46 mill/uL (4.20-5.40); White Blood Cell (WBC) Count 5.9 thou/uL (4.8-10.8)
[2021-07-16] MEDS: Albuterol Sulfate 2.5 mg/3 ml Neb NEB SCH ×2 (06:59→19:01)
[2021-07-16] MEDS: Enoxaparin Sodium 30 MG/0.3 ML SYRINGE SC SCH (08:29)
[2021-07-16] MEDS: predniSONE 1 MG TAB PO SCH (08:30)
[2021-07-16] MEDS: Carvedilol 6.25 MG TAB PO SCH (08:30)
[2021-07-16] MEDS: Folic Acid 1 MG TAB PO SCH (08:30)
[2021-07-16] MEDS: Aspirin 81 mg Enteric Coated Tablet PO SCH (08:30)
[2021-07-16] MEDS: predniSONE 5 MG TAB PO SCH (08:31)
[2021-07-16] MEDS: hydrALAZINE 20 MG/ML VIAL SLOW IVP PRN ×2 (10:15→18:15)
[2021-07-16] MEDS: Carvedilol 25 MG TAB PO SCH (16:26)
[2021-07-16] MEDS: Rosuvastatin 10 MG TAB PO SCH (20:34)
[2021-07-17] MEDS: hydrALAZINE 20 MG/ML VIAL SLOW IVP PRN (03:51)
[2021-07-17 05:52] LABS: #Basophils 0.1 thou/uL (0.0-0.2); #Eosinphils 0.3 thou/uL (0.0-0.7); #Monocytes 0.5 thou/uL (0.11-0.59); #Neutrophils 2.3 thou/uL (1.40-6.50); %Lymphocytes 48.9 % (21.0-51.0); %Monocytes 8.2 % (0.0-10.0); Hemoglobin 11.2 g/dL (12.0-16.0); Mean Corpuscular HGB CONC 32.4 g/dL (32.0-36.0); Mean Corpuscular Hemoglobin 30.6 pg (27.0-31.0); Mean Corpuscular Volume 94.6 fL (78.0-98.0); Mean Platelet Volume 8.6 fL (7.4-10.4); Platelet Count 138 thou/uL (130-400); RBC Distribution Width 13.6 % (11.5-14.5); Red Blood Cell (RBC) Count 3.66 mill/uL (4.20-5.40); White Blood Cell (WBC) Count 6.2 thou/uL (4.8-10.8)
[2021-07-17 06:17] LABS: Anion Gap 11 mmol/L (10-20); BUN (Urea Nitrogen) 17 mg/dL (9.8-20.1); Calc. Creatinine Clearance 36 mL/min (70-130); Calcium 8.3 mg/dL (7.8-10.44); Carbon Dioxide 22 mmol/L (23-31); Chloride 107 mmol/L (98-107); Glucose 84 mg/dL (83-110); Potassium 3.6 mmol/L (3.5-5.1); Sodium 136 mmol/L (136-145)
[2021-07-17 07:46] VITALS: TEMP 97.9
[2021-07-17] MEDS: Albuterol Sulfate 2.5 mg/3 ml Neb NEB SCH (08:01)
[2021-07-17] MEDS: predniSONE 1 MG TAB PO SCH (08:33)
[2021-07-17] MEDS: Folic Acid 1 MG TAB PO SCH (08:33)
[2021-07-17] MEDS: Carvedilol 25 MG TAB PO SCH (08:33)
[2021-07-17] MEDS: predniSONE 5 MG TAB PO SCH (08:33)
[2021-07-17] MEDS: Enoxaparin Sodium 30 MG/0.3 ML SYRINGE SC SCH (08:34)
[2021-07-17] MEDS: Aspirin 81 mg Enteric Coated Tablet PO SCH (08:34)
[2021-07-17] MEDS: traMADol HCl 50 MG TAB PO PRN (08:34)
[2021-07-17 13:26] VITALS: BP 151/72
== END 2021-07-17 14:45 | disposition home health service (06) | DRG 391 ==
LOC: ERS 16:58 → NEURO 21:40
PROVIDERS: ADMIT Student in an Organized Health Care Education/Training Program; ATTEND Internal Medicine
DX: A08.4 Viral intestinal infection, unspecified (principal); I21.A1 Myocardial infarction type 2; N39.0 Urinary tract infection, site not specified; E87.2 Acidosis; B18.1 Chronic viral hepatitis B without delta-agent; M19.90 Unspecified osteoarthritis, unspecified site; K21.9 Gastro-esophageal reflux disease without esophagitis; I48.91 Unspecified atrial fibrillation; M06.9 Rheumatoid arthritis, unspecified; E78.5 Hyperlipidemia, unspecified; N18.30 Chronic kidney disease, stage 3 unspecified; I12.9 Hypertensive chronic kidney disease with stage 1 through stage 4 chronic kidney disease, or unspecified chronic kidney disease; E86.0 Dehydration; Z20.822 Contact with and (suspected) exposure to COVID-19; Z96.652 Presence of left artificial knee joint; Z88.0 Allergy status to penicillin; Z88.5 Allergy status to narcotic agent; Z79.82 Long term (current) use of aspirin; Z79.899 Other long term (current) drug therapy; Z79.51 Long term (current) use of inhaled steroids; Z98.890 Other specified postprocedural states
CPT/HCPCS: 36415; 71045; 74177; 80048; 80053; 81003; 81015; 82553; 83605; 84484; 85025; 87040; 87077; 87086; 87149; 93005; J0360; J0696; J1650; J2270; J2405; J3490; J7050; J7512; J7611; Q0162; Q9967

== ENCOUNTER 2021-11-07 03:47 | Emergency (ER) | payer MEDICARE ==
[2021-11-07] MEDS ORDERED: HYDROcodone/Acetaminophen 5/325 mg Tablet ONE (04:05)
[2021-11-07 04:38] LABS: #Eosinphils 0.1 thou/uL (0.0-0.7); #Lymphocytes 2.9 thou/uL (1.20-3.40); #Monocytes 0.7 thou/uL (0.11-0.59); #Neutrophils 3.7 thou/uL (1.40-6.50); %Basophils 0.3 % (0.0-1.0); %Eosinophils 1.6 % (0.0-10.0); %Monocytes 8.9 % (0.0-10.0); %Neutrophils 50.2 % (42.0-75.0); Hemoglobin 11.6 g/dL (12.0-16.0); Mean Corpuscular HGB CONC 31.7 g/dL (32.0-36.0); Mean Corpuscular Hemoglobin 29.3 pg (27.0-31.0); Mean Corpuscular Volume 92.6 fL (78.0-98.0); Mean Platelet Volume 7.9 fL (7.4-10.4); Platelet Count 176 thou/uL (130-400); RBC Distribution Width 13.5 % (11.5-14.5); Red Blood Cell (RBC) Count 3.96 mill/uL (4.20-5.40); White Blood Cell (WBC) Count 7.4 thou/uL (4.8-10.8)
[2021-11-07 04:58] LABS: ALT (SGPT) 42 U/L (8-55); AST (SGOT) 55 U/L (5-34); Albumin 3.4 g/dL (3.4-4.8); Alkaline Phosphatase 62 U/L (40-110); Anion Gap 17 mmol/L (10-20); BUN (Urea Nitrogen) 47 mg/dL (9.8-20.1); Bilirubin, Total 0.6 mg/dL (0.2-1.2); Calc. Creatinine Clearance 0 mL/min (70-130); Calcium 9.6 mg/dL (7.8-10.44); Carbon Dioxide 24 mmol/L (23-31); Chloride 100 mmol/L (98-107); Estimated GFR 30; Globulin 4.4 g/dL (2.4-3.5); Glucose 98 mg/dL (83-110); Potassium 4.6 mmol/L (3.5-5.1); Protein, Total 7.8 g/dL (5.8-8.1); Sodium 136 mmol/L (136-145)
== END 2021-11-07 05:27 | disposition home or self-care (01) ==
LOC: ERS 03:47
DX: S20.219A Contusion of unspecified front wall of thorax, initial encounter (principal); I10 Essential (primary) hypertension; K21.9 Gastro-esophageal reflux disease without esophagitis; I48.91 Unspecified atrial fibrillation; E78.5 Hyperlipidemia, unspecified; Z79.899 Other long term (current) drug therapy; Z79.82 Long term (current) use of aspirin; W22.8XXA Striking against or struck by other objects, initial encounter
CPT/HCPCS: 36415; 71045; 80053; 84484; 85025; 93005

== ENCOUNTER 2022-02-08 13:51 | Outpatient (CLI) | payer MEDICARE | END 2022-02-08 13:52 | disposition home or self-care (01) | LOC: BICMAMMO 13:51 | PROVIDERS: ATTEND Internal Medicine Rheumatology | DX: M81.0 Age-related osteoporosis without current pathological fracture (principal) | CPT/HCPCS: 77080 ==

== ENCOUNTER 2022-05-26 09:47 | Inpatient (IN) | payer MEDICARE ==
[2022-05-26 11:02] LABS: Prothrombin Time 13.1 sec (12.0-14.7)
[2022-05-26 11:13] LABS: #Basophils 0.1 thou/uL (0.0-0.2); #Eosinphils 0.1 thou/uL (0.0-0.7); #Lymphocytes 2.8 thou/uL (1.20-3.40); #Monocytes 0.5 thou/uL (0.11-0.59); #Neutrophils 4.8 thou/uL (1.40-6.50); %Basophils 0.8 % (0.0-1.0); %Eosinophils 1.6 % (0.0-10.0); %Lymphocytes 33.5 % (21.0-51.0); %Monocytes 5.8 % (0.0-10.0); %Neutrophils 58.4 % (42.0-75.0); Hemoglobin 13.4 g/dL (12.0-16.0); Mean Corpuscular HGB CONC 32.2 g/dL (32.0-36.0); Mean Corpuscular Hemoglobin 30.8 pg (27.0-31.0); Mean Corpuscular Volume 95.7 fl (78.0-98.0); Mean Platelet Volume 8.2 fL (7.4-10.4); Platelet Count 110 10x3/uL (130-400); Platelet Morphology Comment Appears Decreased; RBC Distribution Width 14.6 % (11.5-14.5); Red Blood Cell (RBC) Count 4.34 mill/uL (4.20-5.40); White Blood Cell (WBC) Count 8.3 10x3/uL (4.8-10.8)
[2022-05-26 11:40] LABS: ALT (SGPT) 16 U/L (8-55); AST (SGOT) 22 U/L (5-34); Albumin 3.2 g/dL (3.4-4.8); Alkaline Phosphatase 52 U/L (40-110); Anion Gap 18 mmol/L (10-20); BUN (Urea Nitrogen) 36 mg/dL (9.8-20.1); Calc. Creatinine Clearance 0 mL/min (70-130); Calcium 8.4 mg/dL (7.8-10.44); Carbon Dioxide 16 mmol/L (23-31); Chloride 107 mmol/L (98-107); Estimated GFR 40; Globulin 3.5 g/dL (2.4-3.5); Glucose 77 mg/dL (83-110); Potassium 3.9 mmol/L (3.5-5.1); Protein, Total 6.7 g/dL (5.8-8.1); Sodium 137 mmol/L (136-145)
[2022-05-26] MEDS ORDERED: Ondansetron PF 4 MG/2 ML Vial ONE (12:41)
[2022-05-26] MEDS ORDERED: Acetaminophen 325 MG TAB PO PRN (13:25)
[2022-05-26 15:25] VITALS: BMI 23.0
[2022-05-26 15:40] LABS: #Eosinphils 0.1 thou/uL (0.0-0.7); #Lymphocytes 3.2 thou/uL (1.20-3.40); #Monocytes 0.6 thou/uL (0.11-0.59); #Neutrophils 4.5 thou/uL (1.40-6.50); %Basophils 0.5 % (0.0-1.0); %Eosinophils 1.6 % (0.0-10.0); %Lymphocytes 37.5 % (21.0-51.0); %Monocytes 6.8 % (0.0-10.0); %Neutrophils 53.6 % (42.0-75.0); Hemoglobin 13.8 g/dL (12.0-16.0); Mean Corpuscular Hemoglobin 30.8 pg (27.0-31.0); Mean Corpuscular Volume 96.2 fl (78.0-98.0); Mean Platelet Volume 8.4 fL (7.4-10.4); Platelet Count 103 10x3/uL (130-400); RBC Distribution Width 14.6 % (11.5-14.5); Red Blood Cell (RBC) Count 4.47 mill/uL (4.20-5.40); White Blood Cell (WBC) Count 8.4 10x3/uL (4.8-10.8)
[2022-05-26] MEDS: Sodium Chloride 0.9% 1,000 ML IV SCH (15:54)
[2022-05-26] MEDS: Carvedilol 25 MG TAB PO SCH (16:29)
[2022-05-26] MEDS: traMADol HCl 50 MG TAB PO PRN (16:30)
[2022-05-26] MEDS ORDERED: Atorvastatin Calcium 20 MG TAB PO SCH (21:00)
[2022-05-27] MEDS ORDERED: cloNIDine 0.1 MG TAB PO SCH (01:15)
[2022-05-27] MEDS: Sodium Chloride 0.9% 1,000 ML IV SCH ×2 (01:44→15:55)
[2022-05-27 05:29] LABS: #Eosinphils 0.1 thou/uL (0.0-0.7); #Monocytes 0.6 thou/uL (0.11-0.59); #Neutrophils 4.4 thou/uL (1.40-6.50); %Basophils 0.1 % (0.0-1.0); %Eosinophils 1.6 % (0.0-10.0); %Lymphocytes 36.5 % (21.0-51.0); %Monocytes 7.7 % (0.0-10.0); %Neutrophils 54.1 % (42.0-75.0); Hemoglobin 12.2 g/dL (12.0-16.0); Mean Corpuscular HGB CONC 31.7 g/dL (32.0-36.0); Mean Corpuscular Hemoglobin 30.4 pg (27.0-31.0); Mean Corpuscular Volume 95.8 fl (78.0-98.0); Mean Platelet Volume 8.1 fL (7.4-10.4); Platelet Count 87 10x3/uL (130-400); RBC Distribution Width 14.6 % (11.5-14.5); Red Blood Cell (RBC) Count 4.01 mill/uL (4.20-5.40); White Blood Cell (WBC) Count 8.2 10x3/uL (4.8-10.8)
[2022-05-27 05:51] LABS: Anion Gap 11 mmol/L (10-20); BUN (Urea Nitrogen) 29 mg/dL (9.8-20.1); Calc. Creatinine Clearance 34 mL/min (70-130); Calcium 7.8 mg/dL (7.8-10.44); Carbon Dioxide 21 mmol/L (23-31); Chloride 108 mmol/L (98-107); Estimated GFR 41; Glucose 75 mg/dL (83-110); Potassium 4.1 mmol/L (3.5-5.1); Sodium 136 mmol/L (136-145)
[2022-05-27] MEDS: Fluticasone Propionate Nasal Spray 16 gm Bottle NASAL SCH (09:00)
[2022-05-27] MEDS: Folic Acid 1 MG TAB PO SCH (09:00)
[2022-05-27] MEDS: Carvedilol 25 MG TAB PO SCH ×2 (09:00→18:26)
[2022-05-27] MEDS ORDERED: Folic Acid 1 MG TAB PO SCH (09:00)
[2022-05-27] MEDS: predniSONE 1 MG/ML ML PO SCH (11:23)
[2022-05-27] MEDS: traMADol HCl 50 MG TAB PO PRN (12:26)
[2022-05-27] MEDS: (RENAL) NIRMATRELVIR 150 MG/RITONAVIR 100 MG TABLET PO SCH (21:33)
[2022-05-28] MEDS ORDERED: Labetalol HCl 100 MG/20 ML VIAL SLOW IVP SCH (04:30)
[2022-05-28 04:57] LABS: #Lymphocytes 1.6 thou/uL (1.20-3.40); #Monocytes 0.4 thou/uL (0.11-0.59); #Neutrophils 3.5 thou/uL (1.40-6.50); %Basophils 0.1 % (0.0-1.0); %Eosinophils 0.5 % (0.0-10.0); %Monocytes 7.8 % (0.0-10.0); %Neutrophils 62.7 % (42.0-75.0); Hemoglobin 11.2 g/dL (12.0-16.0); Mean Corpuscular HGB CONC 31.3 g/dL (32.0-36.0); Mean Corpuscular Hemoglobin 29.9 pg (27.0-31.0); Mean Corpuscular Volume 95.4 fl (78.0-98.0); Mean Platelet Volume 8.1 fL (7.4-10.4); Platelet Count 77 10x3/uL (130-400); RBC Distribution Width 14.4 % (11.5-14.5); Red Blood Cell (RBC) Count 3.76 mill/uL (4.20-5.40); White Blood Cell (WBC) Count 5.5 10x3/uL (4.8-10.8)
[2022-05-28 05:12] LABS: Anion Gap 12 mmol/L (10-20); BUN (Urea Nitrogen) 20 mg/dL (9.8-20.1); Calc. Creatinine Clearance 40 mL/min (70-130); Calcium 7.8 mg/dL (7.8-10.44); Carbon Dioxide 19 mmol/L (23-31); Chloride 109 mmol/L (98-107); Estimated GFR 50; Glucose 85 mg/dL (83-110); Potassium 3.8 mmol/L (3.5-5.1); Sodium 136 mmol/L (136-145)
[2022-05-28] MEDS: Sodium Chloride 0.9% 1,000 ML IV SCH (05:24)
[2022-05-28] MEDS: NIFEdipine XL 30 MG TAB PO SCH (10:06)
[2022-05-28] MEDS: (RENAL) NIRMATRELVIR 150 MG/RITONAVIR 100 MG TABLET PO SCH ×2 (10:07→21:17)
[2022-05-28] MEDS: Folic Acid 1 MG TAB PO SCH (10:07)
[2022-05-28] MEDS: Fluticasone Propionate Nasal Spray 16 gm Bottle NASAL SCH (10:07)
[2022-05-28] MEDS: Carvedilol 25 MG TAB PO SCH ×2 (10:07→16:43)
[2022-05-28] MEDS: predniSONE 1 MG/ML ML PO SCH (11:43)
[2022-05-28] MEDS: traMADol HCl 50 MG TAB PO PRN (13:24)
[2022-05-29] MEDS: traMADol HCl 50 MG TAB PO PRN (05:10)
[2022-05-29] MEDS: NIFEdipine XL 30 MG TAB PO SCH (09:07)
[2022-05-29] MEDS: Fluticasone Propionate Nasal Spray 16 gm Bottle NASAL SCH (09:08)
[2022-05-29] MEDS: Carvedilol 25 MG TAB PO SCH ×2 (09:08→17:07)
[2022-05-29] MEDS: Folic Acid 1 MG TAB PO SCH (09:08)
[2022-05-29] MEDS: predniSONE 1 MG/ML ML PO SCH (09:08)
[2022-05-29] MEDS: (RENAL) NIRMATRELVIR 150 MG/RITONAVIR 100 MG TABLET PO SCH ×2 (09:25→21:22)
[2022-05-29] MEDS ORDERED: Diphenoxylate HCl/Atropine Tablet PO PRN (11:55)
[2022-05-29] MEDS ORDERED: cloNIDine 0.1 MG TAB PO SCH (12:30)
[2022-05-29 16:18] LABS: Campy jejuni + coli by PCR Negative (Negative); STEC Shiga Toxin 1+2 POSITIVE (Negative); Salmonella spp. by PCR Negative (Negative); Shigella spp + EIEC by PCR Negative (Negative)
[2022-05-29] MEDS: cloNIDine 0.1 MG TAB PO SCH (21:20)
[2022-05-30] MEDS ORDERED: SOFOSBUVIR PO SCH ×2 (09:00)
[2022-05-30] MEDS ORDERED: LEDIPASVIR PO SCH ×2 (09:00)
[2022-05-30] MEDS: Carvedilol 25 MG TAB PO SCH (09:37)
[2022-05-30] MEDS: cloNIDine 0.1 MG TAB PO SCH (09:37)
[2022-05-30] MEDS: Folic Acid 1 MG TAB PO SCH (09:37)
[2022-05-30] MEDS: NIFEdipine XL 30 MG TAB PO SCH (09:37)
[2022-05-30] MEDS: Fluticasone Propionate Nasal Spray 16 gm Bottle NASAL SCH (09:38)
[2022-05-30] MEDS: (RENAL) NIRMATRELVIR 150 MG/RITONAVIR 100 MG TABLET PO SCH (09:39)
[2022-05-30] MEDS: traMADol HCl 50 MG TAB PO PRN (09:44)
[2022-05-30] MEDS: predniSONE 1 MG/ML ML PO SCH (09:45)
[2022-05-30 12:56] VITALS: BP 124/78; TEMP 96.5
== END 2022-05-30 13:20 | disposition home or self-care (01) | DRG 377 ==
LOC: ERS 09:47 → 2NO 12:12 → OBSVTOIN 05-27 13:28
PROVIDERS: ADMIT Internal Medicine; ATTEND Internal Medicine
PROC: XW0DXF5 Introduction of Other New Technology Therapeutic Substance into Mouth and Pharynx, External Approach, New Technology Group 5 (ICD-10-PCS; principal; 2022-05-27)
PROC: 8E0ZXY6 Isolation (ICD-10-PCS; 2022-05-27)
DX: K92.1 Melena (principal); U07.1 COVID-19; N17.9 Acute kidney failure, unspecified; M06.9 Rheumatoid arthritis, unspecified; M19.90 Unspecified osteoarthritis, unspecified site; I10 Essential (primary) hypertension; K21.9 Gastro-esophageal reflux disease without esophagitis; B18.2 Chronic viral hepatitis C; E86.0 Dehydration; E78.5 Hyperlipidemia, unspecified; R55 Syncope and collapse; Z88.0 Allergy status to penicillin; Z88.8 Allergy status to other drugs, medicaments and biological substances; Z79.899 Other long term (current) drug therapy; Z79.82 Long term (current) use of aspirin; Z79.51 Long term (current) use of inhaled steroids; Z98.890 Other specified postprocedural states
CPT/HCPCS: 36415; 80048; 80053; 85025; 85610; 85730; 87324; 87449; 87505; 93005; 96374; G0378; J2405; J7050; J7512; U0003; U0005

== ENCOUNTER 2023-06-03 | Outpatient (CLI) | payer MEDICARE | END 2023-06-03 09:15 | disposition home or self-care (01) | DX: N18.30 Chronic kidney disease, stage 3 unspecified (principal); R60.0 Localized edema ==

== ENCOUNTER 2023-09-03 15:46 | Inpatient (IN) | payer MEDICARE ==
[2023-09-03] MEDS ORDERED: Acetaminophen 500 MG TAB ONE (16:33)
[2023-09-03 16:53] LABS: Hematocrit 41.2 % (36.0-47.0); Hemoglobin 12.9 g/dL (12.0-16.0); Mean Corpuscular HGB CONC 31.3 g/dL (32.0-36.0); Mean Corpuscular Hemoglobin 29.7 pg (27.0-31.0); Mean Corpuscular Volume 94.9 fL (78.0-98.0); Mean Platelet Volume 10.2 fL (7.4-10.4); Platelet Count 152 10x3/uL (130-400); RBC Distribution Width 15.1 % (11.5-14.5); Red Blood Cell (RBC) Count 4.34 mill/uL (4.20-5.40)
[2023-09-03 17:04] LABS: ALT (SGPT) 6 U/L (8-55); AST (SGOT) 17 U/L (5-34); Albumin 3.1 g/dL (3.4-4.8); Alkaline Phosphatase 45 U/L (40-110); Anion Gap 14 mmol/L (10-20); BUN (Urea Nitrogen) 13 mg/dL (9.8-20.1); Calc. Creatinine Clearance 0 mL/min (70-130); Calcium 9.2 mg/dL (7.8-10.44); Carbon Dioxide 24 mmol/L (23-31); Chloride 104 mmol/L (98-107); Estimated GFR 54; Globulin 3.8 g/dL (2.4-3.5); Glucose 80 mg/dL (83-110); Lipase 15 U/L (8-78); Potassium 3.2 mmol/L (3.5-5.1); Protein, Total 6.9 g/dL (5.8-8.1); Sodium 139 mmol/L (136-145)
[2023-09-03 17:10] LABS: Eosinophils 1 % (0-10); Lymphocytes 49 % (21-51); Monocytes 2 % (0-10); Myelocyte 1 % (0-0); Neutrophil 45 % (42-75); Ovalocytes SLIGHT = 2-5 cells HPF (0-1); Platelet Adequacy Comment Platelets Normal; Polychromasia SLIGHT = 2-3 cells HPF (0-2); Vacuoles SLIGHT
[2023-09-03 17:30] LABS: Influenza A by NAA Not Detected (NotDetected); Influenza B by NAA Not Detected (NotDetected); SARS-CoV-2 NAA Rapid Test Not Detected (NotDetected)
[2023-09-03] MEDS ORDERED: Azithromycin 500 MG VIAL ONE (18:26)
[2023-09-03] MEDS ORDERED: Aspirin Chewable 81 MG TAB ONE (18:27)
[2023-09-03] MEDS ORDERED: Ondansetron ODT 4 MG TAB SL PRN (19:30)
[2023-09-03] MEDS ORDERED: Acetaminophen 325 MG TAB PO PRN (19:30)
[2023-09-03 21:20] LABS: Troponin I 0.024 ng/mL (< 0.028)
[2023-09-03 21:23] VITALS: BMI 24.8
[2023-09-03] MEDS ORDERED: traMADol HCl 50 MG TAB ONE (22:21)
[2023-09-03] MEDS: traMADol HCl 50 MG TAB PO PRN (22:26)
[2023-09-03] MEDS ORDERED: Ondansetron PF 4 MG/2 ML Vial ONE (22:43)
[2023-09-03] MEDS: Ondansetron PF 4 MG/2 ML Vial IVP PRN (22:46)
[2023-09-03 23:17] LABS: Bacteria/HPF None Seen HPF (None Seen); Bilirubin Negative (Negative); Blood, Urine Negative (Negative); Clarity Clear (Clear); Glucose, Urine (Dipstick) Normal (Negative); Ketone, Urine Negative (Negative); Leukocyte 25 Leu/uL (Negative); Nitrite Negative (Negative); Protein, Urine (Dipstick) 20 mg/dL (Neg-Trace); RBC/HPF 0-3 HPF (0-3); Renal Epithelial 0-3 HPF (None Seen); pH, Urine 7.5 (5.0-9.0)
[2023-09-04 03:44] LABS: #Basophils 0.03 10x3/uL (0.0-0.2); %Basophils 0.3 % (0.0-1.0); %Eosinophils 2.8 % (0.0-10.0); %Lymphocytes 46.8 % (21.0-51.0); %Monocytes 8.5 % (0.0-10.0); %Neutrophils 41.2 % (42.0-75.0); Hematocrit 41.9 % (36.0-47.0); Hemoglobin 13.2 g/dL (12.0-16.0); Mean Corpuscular HGB CONC 31.5 g/dL (32.0-36.0); Mean Corpuscular Hemoglobin 29.8 pg (27.0-31.0); Mean Corpuscular Volume 94.6 fL (78.0-98.0); Platelet Count 161 10x3/uL (130-400); RBC Distribution Width 15.2 % (11.5-14.5); Red Blood Cell (RBC) Count 4.43 mill/uL (4.20-5.40)
[2023-09-04 04:09] LABS: Anion Gap 14 mmol/L (10-20); BUN (Urea Nitrogen) 11 mg/dL (9.8-20.1); Calc. Creatinine Clearance 45 mL/min (70-130); Calcium 8.8 mg/dL (7.8-10.44); Carbon Dioxide 25 mmol/L (23-31); Chloride 107 mmol/L (98-107); Estimated GFR 53; Glucose 69 mg/dL (83-110); Sodium 143 mmol/L (136-145)
[2023-09-04 04:11] LABS: Troponin I 0.027 ng/mL (< 0.028)
[2023-09-04] MEDS ORDERED: Electrolyte Replacement Protocol 1 EACH FS SCH (04:30)
[2023-09-04] MEDS ORDERED: traMADol HCl 50 MG TAB ONE (05:48)
[2023-09-04] MEDS: Sodium Chloride 0.9% 1,000 ML IV SCH (06:10)
[2023-09-04 06:14] LABS: Magnesium 1.7 mg/dL (1.6-2.6)
[2023-09-04] MEDS ORDERED: hydrALAZINE 20 MG/ML VIAL ONE (08:52)
[2023-09-04] MEDS ORDERED: Magnesium 2 GM/50 ML BAG (IN WATER) ONE (08:53)
[2023-09-04] MEDS ORDERED: Potassium Chloride 20 MEQ (100 mL) BAG ONE ×2 (08:53→10:35)
[2023-09-04] MEDS: hydrALAZINE 20 MG/ML VIAL SLOW IVP PRN (08:54)
[2023-09-04] MEDS: Potassium Chloride 20 MEQ TAB PO SCH (08:55)
[2023-09-04] MEDS: Magnesium 2 GM/50 ML(in water) 2 GM in Premix 1 BAG IVPB SCH (08:55)
[2023-09-04] MEDS ORDERED: Potassium Chloride 20 MEQ TAB ONE (08:56)
[2023-09-04] MEDS ORDERED: Ondansetron PF 4 MG/2 ML Vial ONE (10:11)
[2023-09-04] MEDS: Potassium Chloride 10 MEQ in Premix 1 BAG IVPB SCH (10:30)
[2023-09-04] MEDS ORDERED: HYDROcodone/Acetaminophen 5/325 mg Tablet PO PRN (15:26)
[2023-09-04] MEDS ORDERED: HYDROcodone/Acetaminophen 10/325 mg Tablet PO PRN (15:27)
[2023-09-04] MEDS ORDERED: Morphine 4 MG/ML VIAL SLOW IVP PRN (15:34)
[2023-09-04] MEDS: NS 0.9% w/ 40 MEQ KCL 1,000 ML IV SCH (17:09)
[2023-09-04] MEDS: Hydrocortisone Sod Succ/PF 100 mg/2 ml Vial IVP SCH (18:14)
[2023-09-04] MEDS ORDERED: Albuterol 2.5 MG (3 mL) NEB NEB PRN (18:52)
[2023-09-04] MEDS: Carvedilol 25 MG TAB PO SCH (20:50)
[2023-09-04] MEDS: Latanoprost 0.005% Ophth Soln 2.5 ml Bottle EA EYE SCH (20:50)
[2023-09-04] MEDS: Amlodipine 5 MG TAB PO SCH (20:50)
[2023-09-05 04:49] LABS: #Basophils Less than 0.03 10x3/uL (0.0-0.2); #Eosinphils Less than 0.03 10x3/uL (0.0-0.7); %Basophils 0.1 % (0.0-1.0); %Eosinophils 0.2 % (0.0-10.0); %Lymphocytes 33.1 % (21.0-51.0); %Neutrophils 60.3 % (42.0-75.0); Hematocrit 37.2 % (36.0-47.0); Hemoglobin 11.6 g/dL (12.0-16.0); Mean Corpuscular HGB CONC 31.2 g/dL (32.0-36.0); Mean Platelet Volume 10.3 fL (7.4-10.4); Platelet Count 139 10x3/uL (130-400); RBC Distribution Width 15.3 % (11.5-14.5)
[2023-09-05 05:16] LABS: Anion Gap 17 mmol/L (10-20); BUN (Urea Nitrogen) 11 mg/dL (9.8-20.1); Calc. Creatinine Clearance 46 mL/min (70-130); Calcium 8.2 mg/dL (7.8-10.44); Carbon Dioxide 17 mmol/L (23-31); Chloride 112 mmol/L (98-107); Estimated GFR 56; Glucose 72 mg/dL (83-110); Magnesium 2.1 mg/dL (1.6-2.6); Potassium 4.6 mmol/L (3.5-5.1); Sodium 141 mmol/L (136-145)
[2023-09-05] MEDS: Losartan 25 MG TAB PO SCH (08:20)
[2023-09-05] MEDS: Mometasone Furoate 60 PUFF 220MCG INH SCH (08:20)
[2023-09-05] MEDS: predniSONE 1 MG TAB PO SCH (08:21)
[2023-09-05] MEDS: Atorvastatin Calcium 20 MG TAB PO SCH (08:21)
[2023-09-05] MEDS: Folic Acid 1 MG TAB PO SCH (08:23)
[2023-09-05] MEDS: Pantoprazole DR 40 MG TAB PO SCH (08:23)
[2023-09-05] MEDS: predniSONE 5 MG TAB PO SCH (08:34)
[2023-09-05 16:27] VITALS: BP 164/72; TEMP 98.6
== END 2023-09-05 18:45 | disposition home or self-care (01) | DRG 392 ==
LOC: ERS 15:46 → ERHOLD 19:14 → 2NO 09-04 14:58 → OBSVTOIN 09-04 15:24
PROVIDERS: ADMIT Student in an Organized Health Care Education/Training Program; ATTEND Internal Medicine
DX: K52.9 Noninfective gastroenteritis and colitis, unspecified (principal); E78.5 Hyperlipidemia, unspecified; K21.9 Gastro-esophageal reflux disease without esophagitis; I10 Essential (primary) hypertension; E87.6 Hypokalemia; I48.0 Paroxysmal atrial fibrillation; E83.42 Hypomagnesemia; M06.9 Rheumatoid arthritis, unspecified; H40.9 Unspecified glaucoma; R51.9 Headache, unspecified; Z79.899 Other long term (current) drug therapy; Z88.0 Allergy status to penicillin
CPT/HCPCS: 36415; 70450; 71045; 80048; 80053; 81001; 82533; 83690; 83735; 84484; 85025; 87040; 93005; 94760; 96374; 96375; 96376; G0378; J0360; J0456; J0780; J1720; J2405; J3475; J3480; J3535; J7050; J7512

== ENCOUNTER 2024-02-14 09:47 | Inpatient (IN) | payer MEDICARE, OTHER ==
[2024-02-14] MEDS ORDERED: Dicyclomine 20 MG TAB ONE (10:19)
[2024-02-14] MEDS ORDERED: Ondansetron PF 4 MG/2 ML Vial ONE ×3 (10:19→15:51)
[2024-02-14 10:53] LABS: #Basophils 0.04 10x3/uL (0.0-0.2); %Basophils 0.4 % (0.0-1.0); %Eosinophils 3.2 % (0.0-10.0); %Lymphocytes 37.9 % (21.0-51.0); %Monocytes 11.1 % (0.0-10.0); Hematocrit 35.7 % (36.0-47.0); Hemoglobin 10.8 g/dL (12.0-16.0); Mean Corpuscular HGB CONC 30.3 g/dL (32.0-36.0); Mean Corpuscular Hemoglobin 29.2 pg (27.0-31.0); Mean Corpuscular Volume 96.5 fL (78.0-98.0); Mean Platelet Volume 9.8 fL (7.4-10.4); Platelet Count 132 10x3/uL (130-400); RBC Distribution Width 15.9 % (11.5-14.5)
[2024-02-14 11:44] LABS: ALT (SGPT) 5 U/L (8-55); AST (SGOT) 12 U/L (5-34); Albumin 2.7 g/dL (3.4-4.8); Alkaline Phosphatase 42 U/L (40-110); Anion Gap 13 mmol/L (10-20); BUN (Urea Nitrogen) 12 mg/dL (9.8-20.1); Bilirubin, Total 0.9 mg/dL (0.2-1.2); Calc. Creatinine Clearance 0 mL/min (70-130); Calcium 8.2 mg/dL (7.8-10.44); Carbon Dioxide 21 mmol/L (23-31); Chloride 105 mmol/L (98-107); Critical Call Chemistry NUR.CC15; Estimated GFR 60; Globulin 3.4 g/dL (2.4-3.5); Glucose 95 mg/dL (83-110); Lipase 7 U/L (8-78); Potassium 2.5 mmol/L (3.5-5.1); Protein, Total 6.1 g/dL (5.8-8.1); Sodium 136 mmol/L (136-145)
[2024-02-14 12:04] LABS: Bacteria/HPF None Seen HPF (None Seen); Bilirubin Negative (Negative); Blood, Urine Trace (Negative); CAUTI Indications for Culture Pelvic or flank pain; Clarity Clear (Clear); Glucose, Urine (Dipstick) Normal (Negative); Ketone, Urine Negative (Negative); Leukocyte Negative Leu/uL (Negative); Nitrite Negative (Negative); Protein, Urine (Dipstick) Negative (Neg-Trace); RBC/HPF 0-3 HPF (0-3); Specific Gravity, Urine 1.004 (1.002-1.036); Squamous Epithelial 0-3 HPF (0-3); Urobilinogen Normal mg/dL (Less than 2); WBC/HPF 0-3 HPF (0-3)
[2024-02-14 12:21] LABS: Urine Culture Reflex No No
[2024-02-14] MEDS ORDERED: Iopamidol-370 76% 500 ML MDV (1 ML CHARGE) ONE (12:52)
[2024-02-14] MEDS ORDERED: Potassium Chloride 20 MEQ TAB ONE (12:53)
[2024-02-14] MEDS ORDERED: Potassium Chloride 20 MEQ (100 mL) BAG ONE (12:53)
[2024-02-14] MEDS ORDERED: Loperamide HCl 2 MG CAP PO PRN (14:35)
[2024-02-14] MEDS ORDERED: Promethazine 25 MG TAB PO PRN (14:40)
[2024-02-14] MEDS ORDERED: Electrolyte Replacement Protocol FS SCH (14:45)
[2024-02-14] MEDS ORDERED: Promethazine HCl 25 MG/ML VIAL ONE (15:59)
[2024-02-14] MEDS ORDERED: Ondansetron PF 4 MG/2 ML Vial IVP PRN (17:00)
[2024-02-14] MEDS ORDERED: Ondansetron ODT 4 MG TAB SL PRN (17:00)
[2024-02-14 17:24] VITALS: BMI 27.3
[2024-02-14] MEDS: Sodium Chloride 0.9% 1,000 ML IV SCH (18:01)
[2024-02-14] MEDS: Amlodipine 5 MG TAB PO SCH (22:08)
[2024-02-14] MEDS: Carvedilol 25 MG TAB PO SCH (22:09)
[2024-02-14] MEDS: Famotidine/PF 20 mg/2ml Vial SLOW IVP SCH (22:09)
[2024-02-14] MEDS: Promethazine HCl 25 MG/ML VIAL IM PRN (22:09)
[2024-02-15] MEDS: Acetaminophen 325 MG TAB PO PRN (04:55)
[2024-02-15 05:01] LABS: Anion Gap 13 mmol/L (10-20); BUN (Urea Nitrogen) 8 mg/dL (9.8-20.1); Calc. Creatinine Clearance 53 mL/min (70-130); Calcium 8.4 mg/dL (7.8-10.44); Carbon Dioxide 19 mmol/L (23-31); Chloride 106 mmol/L (98-107); Estimated GFR 68; Glucose 90 mg/dL (83-110); Potassium 3.1 mmol/L (3.5-5.1); Sodium 135 mmol/L (136-145)
[2024-02-15 05:08] LABS: #Basophils 0.03 10x3/uL (0.0-0.2); %Basophils 0.3 % (0.0-1.0); %Eosinophils 2.6 % (0.0-10.0); %Lymphocytes 30.1 % (21.0-51.0); %Monocytes 9.2 % (0.0-10.0); %Neutrophils 57.5 % (42.0-75.0); Hematocrit 36.1 % (36.0-47.0); Hemoglobin 11.5 g/dL (12.0-16.0); Mean Corpuscular HGB CONC 31.9 g/dL (32.0-36.0); Mean Corpuscular Hemoglobin 29.3 pg (27.0-31.0); Mean Corpuscular Volume 91.9 fL (78.0-98.0); Mean Platelet Volume 10.7 fL (7.4-10.4); Platelet Count 126 10x3/uL (130-400); RBC Distribution Width 15.8 % (11.5-14.5); Red Blood Cell (RBC) Count 3.93 mill/uL (4.20-5.40)
[2024-02-15] MEDS: Enoxaparin 40 MG (0.4 mL) SYRINGE SC SCH (08:48)
[2024-02-15] MEDS ORDERED: Potassium Chloride 20 MEQ in Lactated Ringer's 1,000 ML IV SCH (09:15)
[2024-02-15 09:53] LABS: Magnesium 1.4 mg/dL (1.6-2.6)
[2024-02-15] MEDS: predniSONE 5 MG TAB PO SCH (10:38)
[2024-02-15] MEDS: Folic Acid 1 MG TAB PO SCH ×2 (10:38→22:35)
[2024-02-15] MEDS: Losartan 25 MG TAB PO SCH (10:39)
[2024-02-15] MEDS: Potassium Chloride 20 MEQ in Premix 1 BAG IVPB SCH (10:40)
[2024-02-15] MEDS: Magnesium Sulfate In Water 4 GM in Premix 1 BAG IVPB SCH (10:40)
[2024-02-15] MEDS: Potassium Chloride 20 MEQ TAB PO SCH (10:41)
[2024-02-15] MEDS ORDERED: traMADol HCl 50 MG TAB PO PRN (11:46)
[2024-02-15] MEDS ORDERED: Labetalol HCl 100 MG/20 ML VIAL SLOW IVP PRN (11:52)
[2024-02-15] MEDS: Potassium Chloride 20 MEQ in Lactated Ringer's 1,000 ML IV SCH (13:35)
[2024-02-15] MEDS: Pantoprazole 40 MG VIAL IVP SCH (13:36)
[2024-02-15 19:21] LABS: Phosphorus 2.4 mg/dL (2.3-4.7); Potassium 4.2 mmol/L (3.5-5.1)
[2024-02-15] MEDS: Cyanocobalamin (Vitamin B-12) 1,000 MCG TAB PO SCH (22:35)
[2024-02-15] MEDS: Thiamine 100 MG TAB PO SCH (22:35)
[2024-02-15] MEDS: Multivit, Therapeutic 1 TAB PO SCH (22:35)
[2024-02-15] MEDS: Ipratropium/Albuterol 3 ML NEB NEB PRN (23:01)
[2024-02-16 04:57] LABS: #Basophils 0.03 10x3/uL (0.0-0.2); %Basophils 0.4 % (0.0-1.0); %Eosinophils 2.3 % (0.0-10.0); %Lymphocytes 38.1 % (21.0-51.0); %Monocytes 8.8 % (0.0-10.0); Hematocrit 34.9 % (36.0-47.0); Hemoglobin 11.4 g/dL (12.0-16.0); Mean Corpuscular HGB CONC 32.7 g/dL (32.0-36.0); Mean Corpuscular Hemoglobin 29.3 pg (27.0-31.0); Mean Corpuscular Volume 89.7 fL (78.0-98.0); Mean Platelet Volume 10.1 fL (7.4-10.4); Platelet Count 134 10x3/uL (130-400); RBC Distribution Width 15.7 % (11.5-14.5); Red Blood Cell (RBC) Count 3.89 mill/uL (4.20-5.40)
[2024-02-16 05:10] LABS: Anion Gap 14 mmol/L (10-20); BUN (Urea Nitrogen) 8 mg/dL (9.8-20.1); Calc. Creatinine Clearance 49 mL/min (70-130); Calcium 8.5 mg/dL (7.8-10.44); Carbon Dioxide 22 mmol/L (23-31); Chloride 104 mmol/L (98-107); Estimated GFR 61; Glucose 74 mg/dL (83-110); Magnesium 2.1 mg/dL (1.6-2.6); Potassium 3.8 mmol/L (3.5-5.1); Sodium 136 mmol/L (136-145)
[2024-02-16] MEDS: Losartan 25 MG TAB PO SCH (08:16)
[2024-02-16] MEDS ORDERED: traMADol HCl 50 MG TAB PO SCH (10:00)
[2024-02-16 11:31] VITALS: BP 159/70; TEMP 98.5
== END 2024-02-16 15:35 | disposition home health service (06) | DRG 391 ==
LOC: ERS 09:47 → 2NO 14:44 → OBSVTOIN 02-15 11:55
PROVIDERS: ADMIT Family Medicine; ATTEND Internal Medicine
DX: A08.8 Other specified intestinal infections (principal); G93.41 Metabolic encephalopathy; E87.1 Hypo-osmolality and hyponatremia; E78.5 Hyperlipidemia, unspecified; I48.91 Unspecified atrial fibrillation; E83.42 Hypomagnesemia; E87.6 Hypokalemia; D69.6 Thrombocytopenia, unspecified; D53.9 Nutritional anemia, unspecified; N28.1 Cyst of kidney, acquired; N18.2 Chronic kidney disease, stage 2 (mild); I12.9 Hypertensive chronic kidney disease with stage 1 through stage 4 chronic kidney disease, or unspecified chronic kidney disease; M19.90 Unspecified osteoarthritis, unspecified site; Z88.8 Allergy status to other drugs, medicaments and biological substances; Z88.0 Allergy status to penicillin; Z90.49 Acquired absence of other specified parts of digestive tract
CPT/HCPCS: 36415; 36416; 74177; 80048; 80053; 81001; 83690; 83735; 84100; 85025; 93005; 94640; 96365; 96366; 96372; 96375; 96376; G0378; J1650; J2405; J2470; J2550; J3475; J3480; J3490; J7030; J7120; J7512; J7620; Q9967